=== PATIENT | female | born 1965 | race Caucasian/White ===

== ENCOUNTER → 2020-07-23 12:25 | Outpatient (BNVA) | payer MEDICAID, SELFPAY | PROVIDERS: PCP Registered Nurse; Referring Provider Registered Nurse; Visit Provider Physician Assistant | DX: Z76.89 Persons encountering health services in other specified circumstances (principal) ==

== ENCOUNTER 2020-09-02 15:10 | Inpatient (IN) | payer MEDICAID, SELFPAY ==
--- NOTE | ~2020-09-02 | XR_ITS ---
EXAMINATION: XR CHEST CLINICAL INFORMATION: Shortness of breath COMPARISON: Previous x-ray October 2018 TECHNIQUE: Frontal view of the chest was obtained. FINDINGS: The cardiac silhouette is slightly enlarged.. There is pulmonary venous redistribution and increased perihilar markings. Appearance is questionable for pulmonary edema. Differential would include atypical interstitial pneumonia or airways disease. There is no pleural effusion or pneumothorax. Bony structures are unremarkable. XR/XR chest 1V IMPRESSION: Slightly enlarged cardiac silhouette. Pulmonary venous redistribution and increased perihilar markings. Differential would include pulmonary edema, atypical interstitial pneumonia or airways disease.
--- NOTE | ~2020-09-02 | CT_ITS ---
EXAMINATION: CT HEAD WITHOUT CONTRAST CLINICAL INFORMATION: Multiple falls, possible syncope. COMPARISON: CT brain 11/18/2017. TECHNIQUE: Contiguous axial imaging was performed from the skull base to vertex without intravenous administration of contrast. Additional 2-D coronal and sagittal reformatted images are generated on the CT workstation and uploaded to PACS. Additional imaging is performed through the upper brain due to motion on initial scanning. This CT examination was performed using dose optimization techniques as appropriate, variously including the following: *Automated exposure control *Adjustment of mA and/or kV according to patient size (this includes techniques or standardized protocols for targeted exams where dose is matched to indication/reason for exam; i.e. extremities or head) *Use of iterative reconstruction technique DLP: 853 mGy-cm FINDINGS: There is no intracranial hemorrhage, hematoma, or extra-axial fluid collection. The ventricles are normal in size. There is no hydrocephalus, edema, or mass effect. The hopper-white matter differentiation appears symmetric. There is no visible acute territorial infarct or mass lesion. The calvarium appears intact. There is no pneumocephalus or orbital emphysema. The visualized sinuses and middle ears and mastoid air cells show no significant mucosal thickening. There are no air-fluid levels. CT/CT head/brain wo con IMPRESSION: No acute intracranial abnormality.
--- NOTE | ~2020-09-02 | CT_ITS ---
EXAMINATION: CT ANGIOGRAM OF THE CHEST WITH AND WITHOUT CONTRAST (CT PULMONARY ANGIOGRAM FOR PE) CLINICAL INFORMATION: Reason for Exam Elevated D-dimer. Hypoxia. COMPARISON: Chest radiograph earlier today and CTA chest 09/23/2011 TECHNIQUE: Prior to contrast administration, noncontrast localization images were obtained. Subsequently, multidetector volumetric imaging was performed from the thoracic inlet to below the diaphragms following the administration of 62 mL Omnipaque 350 intravenous contrast. No contrast reaction reported Sagittal, coronal, and MIP oblique sagittal reformatted images were obtained on the CT workstation, uploaded to PACS, and reviewed. This CT examination was performed using dose optimization techniques as appropriate, variously including the following: *Automated exposure control *Adjustment of mA and/or kV according to patient size (this includes techniques or standardized protocols for targeted exams where dose is matched to indication/reason for exam; i.e. extremities or head) *Use of iterative reconstruction technique Total exam dose-length product 261 mGy-cm FINDINGS: QUALITY OF STUDY/CONTRAST BOLUS: Satisfactory. PULMONARY ARTERIES: No central or segmental pulmonary emboli. THORACIC AORTA: No aneurysm or dissection. LUNG: Multifocal groundglass infiltrates are noted throughout the lungs involving all lobes. Findings are worrisome for Covid 19 pulmonary infection. At the time of the 2011 study, groundglass changes were present but were more nonspecific in appearance. PLEURA: No pleural effusion or pneumothorax. MEDIASTINUM: Normal heart size. No pericardial effusion. Some small AP window nodes are present along with some small hilar lymph nodes. No gross hilar or mediastinal lymphadenopathy. No evidence of septal bowing or right heart strain. CHEST WALL/AXILLA: No axillary or internal mammary lymphadenopathy. OSSEOUS STRUCTURES: No acute or suspicious osseous abnormality. UPPER ABDOMEN: There is probable hepatic steatosis. No reflux of contrast into the hepatic veins to suggest elevated right heart pressures. CT/CT angio chest PE protocol IMPRESSION: 1. No evidence of pulmonary emboli. 2. Diffuse pulmonary ground glass infiltrates worrisome for Covid 19 infection. VTE: negative
[2020-09-02 15:25] VITALS: BP 144/85; BP 158/90; PULSE 115; PULSE 118; RESP 22; TEMP 38.8; O2SAT 94; BMI 29.8
--- NOTE | 2020-09-02 16:10 | ECG_ITS ---
Test Reason : DYSPNEA Blood Pressure : / mmHG Vent. Rate : 114 BPM Atrial Rate : 114 BPM P-R Int : 138 ms QRS Dur : 068 ms QT Int : 324 ms P-R-T Axes : 042 035 053 degrees QTc Int : 446 ms Sinus tachycardia Otherwise normal ECG When compared with ECG of 18-SEP-2018 21:37, No significant change was found Referred By: Naya Metz Electronically Signed By:CORTNEY GARAY
[2020-09-02] MEDS: Acetaminophen 325 MG TABLET 650 MG PO (16:52)
[2020-09-02] MEDS: dexAMETHasone sod phosphate 4 MG/ML VIAL 6 MG IVPUSH (16:53)
[2020-09-02] MEDS: 0.9 % Sodium Chloride 1,000 ML 999 ML IVCONT (16:56)
--- NOTE | 2020-09-02 16:57 | ED.SOB ---
HPI - SOB/Dyspnea General Chief Complaint: Dyspnea Stated Complaint: COVID SYMPTOMS Time Seen by Provider: 09/02/20 16:08 Source: patient History of Present Illness HPI Narrative: 55-year-old female with a past medical history of GERD, chronic constipation, HTN, renal stones, seizures, migraines, presenting to the ED complaining of headache, fever, generalized malaise/weakness, cough, shortness of breath, chest pain x8 days. Also reports multiple falls at home with unknown LOC/syncope or head trauma. States was tested for COVID-19 today but will not know for 8 days. Denies abdominal pain, nausea/vomiting, diarrhea, recent travel Related Data Home Medications Medication Instructions Recorded Confirmed atorvastatin 20 mg tablet 20 mg PO DAILY 07/23/20 09/02/20 gabapentin 300 mg capsule 300 mg PO TID 07/23/20 09/02/20 levothyroxine 25 mcg capsule 25 mcg PO DAILY 07/23/20 09/02/20 meloxicam 7.5 mg tablet 7.5 mg PO DAILY 07/23/20 09/02/20 omeprazole 20 mg capsule,delayed 20 mg PO DAILY 07/23/20 09/02/20 release acetaminophen-codeine 1 tab PO Q12H PRN 09/02/20 09/02/20 amitriptyline 1 tab PO DAILY 09/02/20 09/02/20 carbamazepine 2 tab PO Q12H 09/02/20 09/02/20 cholecalciferol (vitamin D3) 1,250 mcg PO QWEEK 09/02/20 09/02/20 clonazepam 1 tab PO BID PRN 09/02/20 09/02/20 clonidine HCl 1 tab PO TID 09/02/20 09/02/20 divalproex 1 tab PO DAILY 09/02/20 09/02/20 docusate sodium 1 cap PO BID PRN 09/02/20 09/02/20 famotidine 1 tab PO BID 09/02/20 09/02/20 fluticasone propionate 1 puff INHALATION BID 09/02/20 09/02/20 levothyroxine [Synthroid] 25 mcg PO DAILY 09/02/20 09/02/20 melatonin 1 - 2 tab PO BEDTIME PRN 09/02/20 09/02/20 quetiapine 1 tab PO BID 09/02/20 09/02/20 quetiapine 1 tab PO TID 09/02/20 09/02/20 quetiapine [Seroquel] 100 mg PO BID 09/02/20 09/02/20 sertraline [Zoloft] 50 mg PO DAILY 09/02/20 09/02/20 topiramate 1 tab PO BID 09/02/20 09/02/20 Allergies Allergy/AdvReac Type Severity Reaction Status Date / Time ibuprofen [From MOTRIN] Allergy Unknown DIARRHEA/VOMIT, Verified 09/02/20 16:52 nausea and vomiting Review of Systems Review of Systems: Constitutional: No Weight loss, + Fever, + Chills, No Night Sweats, +Fatigue, + Malaise ENT/Mouth: + Nasal Congestion, No sore throat, No Rhinorrhea Cardiovascular: + Chest Pain, + SOB, No Dyspnea on Exertion, No Orthopnea, No Edema, No Palpitations Respiratory: + Cough, No Sputum, No Wheezing Gastrointestinal: No Nausea, No Vomiting, No Diarrhea, No Constipation, No Abdominal pain Genitourinary: No Dysuria, No Urinary Frequency, No Hematuria Musculoskeletal: No joint pain, + Myalgias, No Joint Swelling Skin: No Skin Lesions, No rash Neuro: + Weakness, Unknown Loss of Consciousness,+ Headache Yes all other systems are reviewed and are negative Neurologic: Denies Abnormal speech present [facility] Past Medical History Attestation statement: The following information was validated with the patient. Medical History (Updated 09/02/20 @ 21:09 by MARGO Carlos) Acid reflux Chronic constipation HTN (hypertension) Kidney stones Migraine Seizure disorder Surgical History (Updated 08/25/20 @ 13:54 by Brionna Dorman) Hx of cystoscopy Social History Social History (Updated 08/25/20 @ 13:54 by Brionna Dorman) Alcohol intake: never Smoking Status: Never smoker Tobacco Type: Cigarette Use of substances other than those prescribed or required for medical reasons: No Advance Directives: No Advance Directives Information Provided: No Current occupational status: disabled Physical Exam Vital Signs: Vital Signs: Last Vital Signs Temp 98.6 F 09/02/20 19:35 Pulse 101 H 09/02/20 19:35 Resp 20 09/02/20 19:35 BP 115/60 09/02/20 19:35 Pulse Ox 93 09/02/20 19:35 Body Mass Index 29.8 Const: General: cooperative, healthy appearing, comfortable and no acute distress Orientation/consciousness: patient oriented x3 Limitations: no limitations HENMT: Head: Yes normal to inspection and Yes atraumatic Ears: hearing grossly normal bilaterally General nose exam: Normal external nose present Face and sinus: Yes normal facial exam Eyes: General: appearance normal, both eyes and all related structures Pupils: Equal, round and reactive pupils present EOM: EOMs intact bilaterally Neck: Neck: Yes normal visual inspection, Yes full ROM and Yes no meningeal signs Resp: Other: Coarse lung sounds throughout Effort & Inspection: normal respiratory effort Auscultation: clear to auscultation bilaterally and wheezes expiratory wheezes Cardio: Rate: regular rate Heart sounds: S1 normal heart sound present and S2 normal heart sound present GI: Inspection: Yes normal to inspection Palpation (GI): Soft to palpation, nontender, no guarding and not rigid Skin: Rashes: no rashes Wounds: no wounds Neuro: General: patient oriented x3, tone normal, moves all extremities, no meningeal signs, no focal motor deficits and CN's II-XI intact bilaterally Cranial nerves: Yes Equal, round and reactive pupils present Cognition (Neuro): normal cognition Speech: No Abnormal speech present Motor exam (neuro): 5/5 motor strength present throughout and Pronator motor function not present Coordination: [id number] test normal and Romberg test negative Extrem: General: Yes normal to inspection and Yes no pedal edema Course Course Course Narrative: -drop in H&H, will obtain occult stool -troponin elevated at 14.3 > will obtain 3 hour repeat XR chest 1V IMPRESSION: Slightly enlarged cardiac silhouette. Pulmonary venous redistribution and increased perihilar markings. Differential would include pulmonary edema, atypical interstitial pneumonia or airways disease > IV ceftriaxone added -1856-- head CT unremarkable, lactic negative, ferritin/LDH elevated. CPK 1664 consistent rhabdo -D-dimer 397, occult stool negative -COVID-19/influenza/RSV negative > will obtain CTA to rule out PE -2099-- ED care transferred to [facility] pending CTA, UA, reepat trop and admission MDM - SOB/Dyspnea MDM Narrative Medical decision making narrative: 55-year-old female with a past medical history of GERD, chronic constipation, HTN, renal stones, seizures, migraines, presenting to the ED complaining of headache, fever, generalized malaise/weakness, cough, shortness of breath, chest pain x8 days. On exam febrile, tachycardic, tachypneic, satting 88% on room air, coarse lung sounds throughout, no focal neuro deficits. Concern for viral syndrome/COVID-19. R/o PNA vs ICH vs Rhabdo vs metabolic abnls. Lower concern for ACS/PE Low concern for severe sepsis at this time as likely viral etiology Plan: EKG, labs, CXR, Head CT, COVID, IVF, Reassess Medical Records Attestation: I reviewed the patient's medical records. Lab Data Attestation: I reviewed the patient's lab results. Result diagrams: 09/02/20 17:13 09/02/20 17:13 Labs: Lab Results 09/02/20 09/02/20 09/02/20 Range/Units 17:13 17:13 17:13 WBC 6.6 (4.8-10.8) X10*3/uL RBC 3.65 L (4.20-5.50) X10*6/uL Hgb 10.7 L (12.0-16.0) g/dl Hct 34.7 L (37-47) % MCV 95.1 (80-98) fL MCH 29.3 (27.0-33.0) pg MCHC 30.8 L (31.0-35.0) g/dl RDW 14.1 (11.0-16.0) % Plt Count 275 (160-400) X10*3/uL MPV 10.5 (9.4-12.3) fL Immature Gran % (Auto) 0.9 H (0.0-0.4) % Neut % (Auto) 71.3 (45-73) % Lymph % (Auto) 19.6 L (20-40) % [place] % (Auto) 7.8 (2-11) % Eos % (Auto) 0.2 (0-4) % Baso % (Auto) 0.2 (0-2) % Lymph # (Auto) 1.3 (1.2-4.9) X10*3/uL [place] # (Auto) 0.5 (0.1-1.2) X10*3/uL Eos # (Auto) 0.0 (0.0-0.4) X10*3/uL Baso # (Auto) 0.0 (0.0-0.2) X10*3/uL Abs Immat Gran (auto) 0.06 H (0.00-0.03) X10*3/uL Absolute Neuts (auto) 4.7 (2.0-8.3) X10*3/uL Absolute Nucleated RBC 0.000 (0.0-0.012) X10*3/uL Nucleated RBC % (auto) 0.0 (0.0-0.2) /100WBC Smear Tech's Comments VERIFIED PT 14.8 H (10.8-13.0) SEC INR 1.2 H (0.9-1.1) APTT 36.2 (24.1-38.0) SEC D-Dimer 397 NG/ML Sodium 140 (135-145) mmol/L Potassium 3.7 (3.3-5.1) mmol/L Chloride 102 (96-108) mmol/L Carbon Dioxide 28 (22-29) mmol/L Anion Gap 14 (12-20) BUN 12 (9-16) mg/dL Creatinine 0.95 (0.5-1.4) mg/dL Estim Creat Clear Calc 63.8 Estimated GFR > 60 Random Glucose 92 (60-115) mg/dL Lactic Acid (0.5-2.0) mmol/L Calcium 7.4 L (8.4-10.2) mg/dL Magnesium 1.8 (1.6-2.6) mg/dL Ferritin (10-250) ng/mL Total Bilirubin 0.3 (0.0-1.0) mg/dL Direct Bilirubin 0.2 (0.0-0.5) mg/dL AST 59 H (5-31) U/L ALT 17 (0-31) U/L Alkaline Phosphatase 101 (39-117) U/L Lactate Dehydrogenase 474 H (122-220) U/L Total Creatine Kinase 1664 H (26-140) U/L Troponin I High Sens (<3.5-17.0) ng/L B-Natriuretic Peptide (<100) pg/mL Total Protein 6.9 (6.5-8.0) g/dL Albumin 3.5 (3.5-5.0) g/dL Procalcitonin ng/mL Stool Occult Blood (NEG) Coronavirus (PCR) (Negative) Influenza Type A (PCR) (Negative) Influenza Type B (PCR) (Negative) RSV RNA Qual (PCR) (Negative) 09/02/20 09/02/20 09/02/20 Range/Units 17:13 17:13 17:13 WBC (4.8-10.8) X10*3/uL RBC (4.20-5.50) X10*6/uL Hgb (12.0-16.0) g/dl Hct (37-47) % MCV (80-98) fL MCH (27.0-33.0) pg MCHC (31.0-35.0) g/dl RDW (11.0-16.0) % Plt Count (160-400) X10*3/uL MPV (9.4-12.3) fL Immature Gran % (Auto) (0.0-0.4) % Neut % (Auto) (45-73) % Lymph % (Auto) (20-40) % [place] % (Auto) (2-11) % Eos % (Auto) (0-4) % Baso % (Auto) (0-2) % Lymph # (Auto) (1.2-4.9) X10*3/uL [place] # (Auto) (0.1-1.2) X10*3/uL Eos # (Auto) (0.0-0.4) X10*3/uL Baso # (Auto) (0.0-0.2) X10*3/uL Abs Immat Gran (auto) (0.00-0.03) X10*3/uL Absolute Neuts (auto) (2.0-8.3) X10*3/uL Absolute Nucleated RBC (0.0-0.012) X10*3/uL Nucleated RBC % (auto) (0.0-0.2) /100WBC Smear Tech's Comments PT (10.8-13.0) SEC INR (0.9-1.1) APTT (24.1-38.0) SEC D-Dimer NG/ML Sodium (135-145) mmol/L Potassium (3.3-5.1) mmol/L Chloride (96-108) mmol/L Carbon Dioxide (22-29) mmol/L Anion Gap (12-20) BUN (9-16) mg/dL Creatinine (0.5-1.4) mg/dL Estim Creat Clear Calc Estimated GFR Random Glucose (60-115) mg/dL Lactic Acid (0.5-2.0) mmol/L Calcium (8.4-10.2) mg/dL Magnesium (1.6-2.6) mg/dL Ferritin 523 H (10-250) ng/mL Total Bilirubin (0.0-1.0) mg/dL Direct Bilirubin (0.0-0.5) mg/dL AST (5-31) U/L ALT (0-31) U/L Alkaline Phosphatase (39-117) U/L Lactate Dehydrogenase (122-220) U/L Total Creatine Kinase (26-140) U/L Troponin I High Sens 14.3 (<3.5-17.0) ng/L B-Natriuretic Peptide 13 (<100) pg/mL Total Protein (6.5-8.0) g/dL Albumin (3.5-5.0) g/dL Procalcitonin 0.08 ng/mL Stool Occult Blood (NEG) Coronavirus (PCR) (Negative) Influenza Type A (PCR) (Negative) Influenza Type B (PCR) (Negative) RSV RNA Qual (PCR) (Negative) 09/02/20 09/02/20 09/02/20 Range/Units 17:57 17:57 18:51 WBC (4.8-10.8) X10*3/uL RBC (4.20-5.50) X10*6/uL Hgb (12.0-16.0) g/dl Hct (37-47) % MCV (80-98) fL MCH (27.0-33.0) pg MCHC (31.0-35.0) g/dl RDW (11.0-16.0) % Plt Count (160-400) X10*3/uL MPV (9.4-12.3) fL Immature Gran % (Auto) (0.0-0.4) % Neut % (Auto) (45-73) % Lymph % (Auto) (20-40) % [place] % (Auto) (2-11) % Eos % (Auto) (0-4) % Baso % (Auto) (0-2) % Lymph # (Auto) (1.2-4.9) X10*3/uL [place] # (Auto) (0.1-1.2) X10*3/uL Eos # (Auto) (0.0-0.4) X10*3/uL Baso # (Auto) (0.0-0.2) X10*3/uL Abs Immat Gran (auto) (0.00-0.03) X10*3/uL Absolute Neuts (auto) (2.0-8.3) X10*3/uL Absolute Nucleated RBC (0.0-0.012) X10*3/uL Nucleated RBC % (auto) (0.0-0.2) /100WBC Smear Tech's Comments PT (10.8-13.0) SEC INR (0.9-1.1) APTT (24.1-38.0) SEC D-Dimer NG/ML Sodium (135-145) mmol/L Potassium (3.3-5.1) mmol/L Chloride (96-108) mmol/L Carbon Dioxide (22-29) mmol/L Anion Gap (12-20) BUN (9-16) mg/dL Creatinine (0.5-1.4) mg/dL Estim Creat Clear Calc Estimated GFR Random Glucose (60-115) mg/dL Lactic Acid 0.6 (0.5-2.0) mmol/L Calcium (8.4-10.2) mg/dL Magnesium (1.6-2.6) mg/dL Ferritin (10-250) ng/mL Total Bilirubin (0.0-1.0) mg/dL Direct Bilirubin (0.0-0.5) mg/dL AST (5-31) U/L ALT (0-31) U/L Alkaline Phosphatase (39-117) U/L Lactate Dehydrogenase (122-220) U/L Total Creatine Kinase (26-140) U/L Troponin I High Sens (<3.5-17.0) ng/L B-Natriuretic Peptide (<100) pg/mL Total Protein (6.5-8.0) g/dL Albumin (3.5-5.0) g/dL Procalcitonin ng/mL Stool Occult Blood NEG (NEG) Coronavirus (PCR) NEGATIVE (Negative) Influenza Type A (PCR) NEGATIVE (Negative) Influenza Type B (PCR) NEGATIVE (Negative) RSV RNA Qual (PCR) NEGATIVE (Negative) ECG Data Attestation: I personally reviewed and interpreted this ECG as follows: ECG interpretation date: 09/02/20 ECG interpretation time: 17:04 Prior ECG tracings: available for review Interpretation: EKG sinus tachycardia with rate of 114. Artifact present. No STEMI. Similar to priors Discharge Plan Discharge Clinical Impression: Atypical pneumonia, Syncope Patient Disposition: Admitted As Inpatient Prescriptions: No Action clonidine HCl 0.1 mg tablet 1 tab PO TID RF: 0 carbamazepine 100 mg tablet extended release 12 hr 2 tab PO Q12H RF: 0 clonazepam 1 mg tablet 1 tab PO BID PRN (Reason: Anxiety) RF: 0 melatonin 3 mg tablet 1 - 2 tab PO BEDTIME PRN (Reason: Insomnia) RF: 0 acetaminophen-codeine 300-30 mg tablet 1 tab PO Q12H PRN (Reason: Pain) RF: 0 quetiapine 100 mg tablet 1 tab PO BID RF: 0 famotidine 20 mg tablet 1 tab PO BID RF: 0 divalproex 500 mg tablet extended release 24 hr 1 tab PO DAILY RF: 0 docusate sodium 100 mg capsule 1 cap PO BID PRN (Reason: constipation) RF: 0 topiramate 100 mg tablet 1 tab PO BID RF: 0 sertraline [Zoloft] 50 mg tablet 50 mg PO DAILY RF: 0 amitriptyline 100 mg tablet 1 tab PO DAILY RF: 0 quetiapine 50 mg tablet 1 tab PO TID RF: 0 cholecalciferol (vitamin D3) 1,250 mcg (50,000 unit) capsule 1,250 mcg PO QWEEK RF: 0 quetiapine [Seroquel] 100 mg Tablet 100 mg PO BID RF: 0 levothyroxine [Synthroid] 25 mcg Tablet 25 mcg PO DAILY RF: 0 fluticasone propionate 220 mcg/actuation Hfa Aerosol Inhaler 1 puff INHALATION BID RF: 0 levothyroxine 25 mcg capsule 25 mcg PO DAILY RF: 0 meloxicam 7.5 mg tablet 7.5 mg PO DAILY RF: 0 gabapentin 300 mg capsule 300 mg PO TID RF: 0 atorvastatin 20 mg tablet 20 mg PO DAILY RF: 0 omeprazole 20 mg capsule,delayed release(DR/EC) 20 mg PO DAILY RF: 0
[2020-09-02 17:00] VITALS: BP 140/80; PULSE 117; RESP 20; TEMP 37.9; O2SAT 94
[2020-09-02 17:24] LABS: Basophils Percent Auto 0.2 % (0-2); Eosinophils Percent Auto 0.2 % (0-4); Hematocrit 34.7 % (37-47); Hemoglobin 10.7 g/dl (12.0-16.0); Imm Gran Abs Auto 0.06 X10*3/uL (0.00-0.03); Imm Gran Pct Auto 0.9 % (0.0-0.4); Lymphocytes Absolute Auto 1.3 X10*3/uL (1.2-4.9); Lymphocytes Percent Auto 19.6 % (20-40); MANUAL DIFF FLAG SCAN; Mean Corpuscular HGB Conc 30.8 g/dl (31.0-35.0); Mean Corpuscular Hemoglobin 29.3 pg (27.0-33.0); Mean Corpuscular Volume 95.1 fL (80-98); Mean Platelet Volume 10.5 fL (9.4-12.3); Monocytes Absolute Auto 0.5 X10*3/uL (0.1-1.2); Monocytes Percent Auto 7.8 % (2-11); Neutrophils Absolute Auto 4.7 X10*3/uL (2.0-8.3); Neutrophils Percent Auto 71.3 % (45-73); Platelet Count 275 X10*3/uL (160-400); Red Blood Count 3.65 X10*6/uL (4.20-5.50); Red Cell Distribution Width 14.1 % (11.0-16.0); SCAN SMEAR FLAG 1; White Blood Count 6.6 X10*3/uL (4.8-10.8)
[2020-09-02 17:29] LABS: INTERNATIONAL NORM RATIO 1.2 (0.9-1.1); Prothrombin Time 14.8 SEC (10.8-13.0)
[2020-09-02 17:32] LABS: Partial Thromboplastin Time 36.2 SEC (24.1-38.0)
[2020-09-02 17:49] LABS: SLIDE REVIEW VERIFIED
[2020-09-02 17:56] LABS: B Type Natriuretic Peptide 13 pg/mL (<100); Troponin-I High Sensitivity 14.3 ng/L (<3.5-17.0)
[2020-09-02 18:15] LABS: Alanine Aminotransferase 17 U/L (0-31); Albumin Level 3.5 g/dL (3.5-5.0); Alkaline Phosphatase 101 U/L (39-117); Anion Gap 14 (12-20); Aspartate Amino Transferase 59 U/L (5-31); Bilirubin Direct 0.2 mg/dL (0.0-0.5); Bilirubin Total 0.3 mg/dL (0.0-1.0); Blood Urea Nitrogen 12 mg/dL (9-16); Calcium 7.4 mg/dL (8.4-10.2); Carbon Dioxide 28 mmol/L (22-29); Chloride 102 mmol/L (96-108); Creatinine Clr Calc Pharmacy 63.8; Estimated Glomerular Filt Rate > 60; Glucose Random 92 mg/dL (60-115); Lactate Dehydrogenase 474 U/L (122-220); Magnesium 1.8 mg/dL (1.6-2.6); Potassium 3.7 mmol/L (3.3-5.1); Procalcitonin 0.08 ng/mL; Sodium 140 mmol/L (135-145); Total Protein 6.9 g/dL (6.5-8.0)
[2020-09-02 18:18] LABS: Ferritin 523 ng/mL (10-250)
[2020-09-02] MEDS: cefTRIAXone sodium 1 GM in 0.9 % Sodium Chloride 50 ML IV (18:25)
[2020-09-02 18:29] LABS: Lactic Acid 0.6 mmol/L (0.5-2.0)
[2020-09-02] MEDS: Azithromycin 500 MG in 0.9 % Sodium Chloride 250 ML 125 MG IV (18:47)
[2020-09-02 19:07] LABS: OBS Int Ctl Valid YES; OBS1 NEG (NEG)
[2020-09-02 19:18] LABS: D Dimer 397 NG/ML
[2020-09-02 19:35] VITALS: BP 115/60; PULSE 101; RESP 20; TEMP 37; O2SAT 93
[2020-09-02 19:54] LABS: Influenza A PCR NEGATIVE (Negative); Influenza B PCR NEGATIVE (Negative); Resp Syncy Virus RNA Qual PCR NEGATIVE (Negative); SARS COV2 PCR INHOUSE NEGATIVE (Negative)
[2020-09-02] MEDS: iohexoL 350 MG/ML 100 ML INFUS..BTL IV (20:54)
[2020-09-02 21:02] VITALS: BP 112/64; PULSE 97; RESP 18; TEMP 36.9; O2SAT 93
[2020-09-02 21:40] LABS: Troponin-I High Sensitivity 10.7 ng/L (<3.5-17.0)
--- NOTE | 2020-09-02 23:20 | PM.IMHP ---
History of Present Illness Date of Service: 09/02/20 Chief Complaint: SOB This is a 55-year-old female with past medical history of hypertension, migraine, seizure disorder, acid reflux who presents to the hospital with complaints of shortness of breath, cough, diarrhea, vomiting and low appetite for the past 8 days. Patient reports that she has had contact with COVID positive patient her building as well as her having COVID like symptoms before her. She has also been feeling feverish, with chills. She has no chest pain, no headache, change in vision, no urinary symptoms and no lower extremity edema. To have a temp of 101.9?, pulse rate of 118, respiratory rate of 22, blood pressure of 144/85, satting 88% on room air. Currently on 2 L satting 94% Labs are significant for WBC count 6.6, hemoglobin of 10.7 which is lower than her baseline of 12, ferritin of 523, AST of 59, LDH of 474, CPK of 1664, negative COVID-19, Chest CT angiogram showed no PE but significant bilateral pneumonia suggestive of COVID-19 infection Past medical history: Chronic constipation, hypertension, migraine, seizure disorder, kidney stones, acid reflux Past surgical history: Cystoscopy Family history: Denies Social history: Comes from home, denies any tobacco alcohol or illicit drugs Review of Systems Review of Systems: Yes all other systems are reviewed and are negative [facility] Medical History Acid reflux Chronic constipation HTN (hypertension) Kidney stones Migraine Seizure disorder Surgical History (Updated 08/25/20 @ 13:54 by Brionna Dorman) Hx of cystoscopy Social History (Updated 08/25/20 @ 13:54 by Brionna Dorman) Alcohol intake: never Smoking Status: Never smoker Tobacco Type: Cigarette Use of substances other than those prescribed or required for medical reasons: No Advance Directives: No Advance Directives Information Provided: No Current occupational status: disabled Meds Allergies Allergy/AdvReac Type Severity Reaction Status Date / Time ibuprofen [From MOTRIN] Allergy Unknown DIARRHEA/VOMIT, Verified 09/02/20 16:52 nausea and vomiting Active Medications: Current Medications Generic Name Dose Route Start Last Admin Trade Name Freq PRN Reason Stop Dose Admin Acetaminophen 650 mg 09/02/20 22:55 Acetaminophen 325 Mg Tablet PO Q6H PRN Fever Acetaminophen/Codeine Phosphate 1 tab 09/02/20 22:55 Acetaminophen With Codeine # 3 Tablet PO Q12H PRN Pain Amitriptyline HCl 100 mg 09/03/20 09:00 Amitriptyline Hcl 50 Mg Tablet PO DAILY [facility] Atorvastatin Calcium 20 mg 09/03/20 09:00 Atorvastatin Calcium 20 Mg Tablet PO DAILY [facility] Carbamazepine 200 mg 09/02/20 23:00 Carbamazepine Er 100 Mg Tab.Er.12h PO Q12H [facility] Clonazepam 1 mg 09/02/20 22:55 Clonazepam 1 Mg Tablet PO BID PRN Anxiety Clonidine HCl 0.1 mg 09/03/20 09:00 Clonidine Hcl 0.1 Mg Tablet PO TID [facility] Protocol Dexamethasone Sodium Phosphate 6 mg 09/03/20 09:00 Dexamethasone Sod Phosphate 4 Mg/Ml Vial IVPUSH DAILY [facility] Divalproex Sodium 500 mg 09/03/20 09:00 Divalproex Sodium Er 500 Mg Tab.Er.24h PO DAILY [facility] Docusate Sodium 100 mg 09/02/20 22:55 Docusate Sodium 100 Mg Capsule PO BID PRN constipation Famotidine 20 mg 09/03/20 09:00 Famotidine 20 Mg Tablet PO BID [facility] Gabapentin 300 mg 09/03/20 09:00 Gabapentin 300 Mg Capsule PO TID [facility] Heparin Sodium (Porcine) 5,000 unit 09/02/20 23:00 Heparin Sodium,Porcine 5,000 Unit/Ml Vial SUBCUT Q12H [facility] Levothyroxine Sodium 25 mcg 09/03/20 09:00 Levothyroxine Sodium 25 Mcg Tablet PO DAILY [facility] Levothyroxine Sodium 25 mcg 09/03/20 09:00 Levothyroxine Sodium 25 Mcg Tablet PO DAILY [facility] Melatonin 3 - 6 mg 09/02/20 22:55 Melatonin 3 Mg Tablet PO BEDTIME PRN Insomnia Non-Formulary Medication 1 puff 09/03/20 09:00 Fluticasone Propionate INHALE BID [facility] Non-Formulary Medication 7.5 mg 09/03/20 09:00 Meloxicam PO DAILY [facility] Omeprazole 20 mg 09/03/20 09:00 Omeprazole 20 Mg Capsule.Dr PO DAILY [facility] Ondansetron HCl 4 mg 09/02/20 22:55 Ondansetron Hcl 4 Mg/2 Ml Vial IVPUSH Q8H PRN Nausea and Vomiting Pharmacy Consult 1 each 09/02/20 16:28 Consult Rx Perform Med Rec MISCELLANE ONCE PRN Consult order Quetiapine Fumarate 50 mg 09/03/20 09:00 Quetiapine Fumarate 50 Mg Tablet PO TID [facility] Quetiapine Fumarate 100 mg 09/03/20 09:00 Quetiapine Fumarate 100 Mg Tablet PO BID [facility] Quetiapine Fumarate 100 mg 09/03/20 09:00 Quetiapine Fumarate 100 Mg Tablet PO BID [facility] Sertraline HCl 50 mg 09/03/20 09:00 Sertraline Hcl 50 Mg Tablet PO DAILY [facility] Sodium Chloride 3 ml 09/03/20 00:00 0.9 % Sodium Chloride Flush 3 Ml Syringe IVFLUSH QSHIFT [facility] Topiramate 100 mg 09/03/20 09:00 Topiramate 100 Mg Tablet PO BID [facility] Home Medications Medication Instructions Recorded Confirmed Last Taken Type atorvastatin 20 mg tablet 20 mg PO DAILY 07/23/20 09/02/20 Unknown History gabapentin 300 mg capsule 300 mg PO TID 07/23/20 09/02/20 Unknown History levothyroxine 25 mcg capsule 25 mcg PO DAILY 07/23/20 09/02/20 Unknown History meloxicam 7.5 mg tablet 7.5 mg PO DAILY 07/23/20 09/02/20 Unknown History omeprazole 20 mg capsule,delayed 20 mg PO DAILY 07/23/20 09/02/20 Unknown History release acetaminophen-codeine 1 tab PO Q12H PRN 09/02/20 09/02/20 Unknown History amitriptyline 1 tab PO DAILY 09/02/20 09/02/20 Unknown History carbamazepine 2 tab PO Q12H 09/02/20 09/02/20 Unknown History cholecalciferol (vitamin D3) 1,250 mcg PO QWEEK 09/02/20 09/02/20 Unknown History clonazepam 1 tab PO BID PRN 09/02/20 09/02/20 Unknown History clonidine HCl 1 tab PO TID 09/02/20 09/02/20 Unknown History divalproex 1 tab PO DAILY 09/02/20 09/02/20 Unknown History docusate sodium 1 cap PO BID PRN 09/02/20 09/02/20 Unknown History famotidine 1 tab PO BID 09/02/20 09/02/20 Unknown History fluticasone propionate 1 puff INHALATION BID 09/02/20 09/02/20 Unknown History levothyroxine [Synthroid] 25 mcg PO DAILY 09/02/20 09/02/20 Unknown History melatonin 1 - 2 tab PO BEDTIME PRN 09/02/20 09/02/20 Unknown History quetiapine 1 tab PO BID 09/02/20 09/02/20 Unknown History quetiapine 1 tab PO TID 09/02/20 09/02/20 Unknown History quetiapine [Seroquel] 100 mg PO BID 09/02/20 09/02/20 Unknown History sertraline [Zoloft] 50 mg PO DAILY 09/02/20 09/02/20 Unknown History topiramate 1 tab PO BID 09/02/20 09/02/20 Unknown History Physical Exam Vital Signs and Narrative: Vital Signs: Last Vital Signs Temp 98.5 F 09/02/20 21:02 Pulse 97 09/02/20 21:02 Resp 18 09/02/20 21:02 BP 112/64 09/02/20 21:02 Pulse Ox 93 09/02/20 21:02 Body Mass Index 29.8 Const: General: cooperative and no acute distress Orientation/consciousness: patient oriented x3 Eyes: General: appearance normal, both eyes and all related structures Resp: Effort & Inspection: normal respiratory effort and able to speak in complete sentences Cardio: Rate: regular rate Rhythm: regular rhythm GI: Palpation (GI): Soft to palpation Auscultation: normal bowel sounds Skin: General skin exam: no rashes or lesions noted Neuro: General: patient oriented x3 Cognition (Neuro): normal cognition Extrem: General: Yes normal to inspection and Yes no pedal edema Results Labs CBC and Chem 7: 09/02/20 17:13 09/02/20 17:13 Labs: Laboratory Results - last 24 hr 09/02/20 09/02/20 09/02/20 17:13 17:13 17:13 MCV 95.1 MCH 29.3 MCHC 30.8 L RDW 14.1 Plt Count 275 MPV 10.5 Immature Gran % (Auto) 0.9 H Neut % (Auto) 71.3 Lymph % (Auto) 19.6 L [place] % (Auto) 7.8 Eos % (Auto) 0.2 Baso % (Auto) 0.2 Lymph # (Auto) 1.3 [place] # (Auto) 0.5 Eos # (Auto) 0.0 Baso # (Auto) 0.0 Abs Immat Gran (auto) 0.06 H Absolute Neuts (auto) 4.7 Absolute Nucleated RBC 0.000 Nucleated RBC % (auto) 0.0 Smear Tech's Comments VERIFIED PT 14.8 H INR 1.2 H APTT 36.2 D-Dimer 397 Anion Gap 14 Estim Creat Clear Calc 63.8 Estimated GFR > 60 Random Glucose 92 Lactic Acid Calcium 7.4 L Magnesium 1.8 Ferritin Total Bilirubin 0.3 Direct Bilirubin 0.2 AST 59 H ALT 17 Alkaline Phosphatase 101 Lactate Dehydrogenase 474 H Total Creatine Kinase 1664 H Troponin I High Sens B-Natriuretic Peptide Total Protein 6.9 Albumin 3.5 Procalcitonin Stool Occult Blood Coronavirus (PCR) Influenza Type A (PCR) Influenza Type B (PCR) RSV RNA Qual (PCR) 09/02/20 09/02/20 09/02/20 17:13 17:13 17:13 MCV MCH MCHC RDW Plt Count MPV Immature Gran % (Auto) Neut % (Auto) Lymph % (Auto) [place] % (Auto) Eos % (Auto) Baso % (Auto) Lymph # (Auto) [place] # (Auto) Eos # (Auto) Baso # (Auto) Abs Immat Gran (auto) Absolute Neuts (auto) Absolute Nucleated RBC Nucleated RBC % (auto) Smear Tech's Comments PT INR APTT D-Dimer Anion Gap Estim Creat Clear Calc Estimated GFR Random Glucose Lactic Acid Calcium Magnesium Ferritin 523 H Total Bilirubin Direct Bilirubin AST ALT Alkaline Phosphatase Lactate Dehydrogenase Total Creatine Kinase Troponin I High Sens 14.3 B-Natriuretic Peptide 13 Total Protein Albumin Procalcitonin 0.08 Stool Occult Blood Coronavirus (PCR) Influenza Type A (PCR) Influenza Type B (PCR) RSV RNA Qual (PCR) 09/02/20 09/02/20 09/02/20 17:57 17:57 18:51 MCV MCH MCHC RDW Plt Count MPV Immature Gran % (Auto) Neut % (Auto) Lymph % (Auto) [place] % (Auto) Eos % (Auto) Baso % (Auto) Lymph # (Auto) [place] # (Auto) Eos # (Auto) Baso # (Auto) Abs Immat Gran (auto) Absolute Neuts (auto) Absolute Nucleated RBC Nucleated RBC % (auto) Smear Tech's Comments PT INR APTT D-Dimer Anion Gap Estim Creat Clear Calc Estimated GFR Random Glucose Lactic Acid 0.6 Calcium Magnesium Ferritin Total Bilirubin Direct Bilirubin AST ALT Alkaline Phosphatase Lactate Dehydrogenase Total Creatine Kinase Troponin I High Sens B-Natriuretic Peptide Total Protein Albumin Procalcitonin Stool Occult Blood NEG Coronavirus (PCR) NEGATIVE Influenza Type A (PCR) NEGATIVE Influenza Type B (PCR) NEGATIVE RSV RNA Qual (PCR) NEGATIVE 09/02/20 21:07 MCV MCH MCHC RDW Plt Count MPV Immature Gran % (Auto) Neut % (Auto) Lymph % (Auto) [place] % (Auto) Eos % (Auto) Baso % (Auto) Lymph # (Auto) [place] # (Auto) Eos # (Auto) Baso # (Auto) Abs Immat Gran (auto) Absolute Neuts (auto) Absolute Nucleated RBC Nucleated RBC % (auto) Smear Tech's Comments PT INR APTT D-Dimer Anion Gap Estim Creat Clear Calc Estimated GFR Random Glucose Lactic Acid Calcium Magnesium Ferritin Total Bilirubin Direct Bilirubin AST ALT Alkaline Phosphatase Lactate Dehydrogenase Total Creatine Kinase Troponin I High Sens 10.7 B-Natriuretic Peptide Total Protein Albumin Procalcitonin Stool Occult Blood Coronavirus (PCR) Influenza Type A (PCR) Influenza Type B (PCR) RSV RNA Qual (PCR) Imaging Radiologist's Impressions: Impressions Chest X-Ray 09/02/20 16:10 IMPRESSION: Slightly enlarged cardiac silhouette. Pulmonary venous redistribution and increased perihilar markings. Differential would include pulmonary edema, atypical interstitial pneumonia or airways disease. Head CT 09/02/20 16:28 IMPRESSION: No acute intracranial abnormality. Chest CTA 09/02/20 20:06 IMPRESSION: 1. No evidence of pulmonary emboli. 2. Diffuse pulmonary ground glass infiltrates worrisome for Covid 19 infection. VTE: negative Assessment and Plan (1) Atypical pneumonia: Status: Acute (2) Sepsis: Status: Acute (3) Acute respiratory failure with hypoxia: Status: Acute (4) Pneumonia due to COVID-19 virus: Status: Acute This is a 55-year-old female with past medical history hypertension, migraine, seizure disorder who presents to the hospital with complaints of shortness of breath, cough, diarrhea, and vomiting with recent COVID-19 contacts. # sepsis - most likely secondary to viral pneumonia - has fever, tachycardia, tachypnea, no leukocytosis - COVID-19 PCR negative but most likely falsely negative as her chest CT typical of COVID-19 pneumonia Plan: - received antibiotics in the ED will continue it -check strep and Legionella antigens - follow cultures # acute hypoxic respiratory failure - secondary to pneumonia - requiring 2 L of oxygen - follow respiratory status - dexamethasone for COVID-19 # atypical pneumonia - has bilateral infiltrates suggestive of COVID-19 although COVID-19 PCR negative - at this time will start on IV antibiotics, dexamethasone given her hypoxia - follow cultures # hypothyroidism - continue levothyroxine # seizures - continue divalproex and carbamazepine # migraines - continue amitriptyline and Topamax DVT prophylaxis: Heparin subQ
[2020-09-03] VITALS (9 sets, daily range): BP systolic 120–155; BP diastolic 76–90; PULSE 77–102; RESP 15–23; TEMP 35.7–36.8; O2SAT 92–96
[2020-09-03] MEDS: 0.9 % Sodium Chloride Flush 3 ML SYRINGE IVFLUSH ×4 (02:31→20:11)
[2020-09-03] MEDS: Heparin Sodium,Porcine 5,000 UNIT/ML VIAL 5000 UNIT SUBCUT ×2 (02:34→13:37)
[2020-09-03] MEDS: carBAMazepine ER 100 MG TAB.ER.12H 200 MG PO ×2 (03:02→22:10)
--- NOTE | 2020-09-03 04:45 | PC.NURSE ---
ADMIT TO 261-1 IMC OVERFLOW...AWAKE..ALERT..ORIENTED X3...O2 2-3 L/M...RESPIRATIONS EASY AT REST...MILD SINGH...OCCASSIONAL HARSH NON-PRODUCTIVE COUGH..CO UPPER CHEST ACHY PAIN WITH COUGH...MEDICATED WITH PRN TYLENOL/CODEINE WITH EFFECT..RESTFUL...OOB TO BEDSIDE COMMODE TO VOID
[2020-09-03 05:14] LABS: Glucose Urine UA NEG (NEG); Leukocyte Esterase Urine NEG (NEG); Nitrite Urine POS (NEG); PH 6.5 (5.0-8.0); UACC Culture Trigger YES; Urine Blood TRACE (NEG); Urine Ketones 15 MG/DL (NEG); Urine Protein NEG (NEG-TRACE)
[2020-09-03 05:23] LABS: Appearance Urine HAZY; Color Urine YELLOW
[2020-09-03 05:28] LABS: Bacteria Urine 2+ /LPF; Mucus Urine 2+ /LPF; Squamous Epithelial Cell Urine 2+ /LPF
[2020-09-03 05:50] LABS: Basophils Percent Auto 0.3 % (0-2); Eosinophils Percent Auto 0.2 % (0-4); Hematocrit 34.5 % (37-47); Hemoglobin 10.6 g/dl (12.0-16.0); Imm Gran Abs Auto 0.07 X10*3/uL (0.00-0.03); Imm Gran Pct Auto 1.1 % (0.0-0.4); Lymphocytes Absolute Auto 1.2 X10*3/uL (1.2-4.9); Lymphocytes Percent Auto 19.4 % (20-40); MANUAL DIFF FLAG SCAN; Mean Corpuscular HGB Conc 30.7 g/dl (31.0-35.0); Mean Corpuscular Volume 94.3 fL (80-98); Mean Platelet Volume 11.2 fL (9.4-12.3); Monocytes Absolute Auto 0.6 X10*3/uL (0.1-1.2); Monocytes Percent Auto 10.2 % (2-11); Neutrophils Absolute Auto 4.3 X10*3/uL (2.0-8.3); Neutrophils Percent Auto 68.8 % (45-73); Platelet Count 248 X10*3/uL (160-400); Red Blood Count 3.66 X10*6/uL (4.20-5.50); Red Cell Distribution Width 13.8 % (11.0-16.0); SCAN SMEAR FLAG 1; White Blood Count 6.2 X10*3/uL (4.8-10.8)
[2020-09-03 06:12] LABS: SLIDE REVIEW VERIFIED
[2020-09-03 06:17] LABS: Anion Gap 14 (12-20); Blood Urea Nitrogen 10 mg/dL (9-16); Calcium 7.3 mg/dL (8.4-10.2); Carbon Dioxide 26 mmol/L (22-29); Chloride 105 mmol/L (96-108); Creatinine Clr Calc Pharmacy 80.8; Estimated Glomerular Filt Rate > 60; Glucose Random 79 mg/dL (60-115); Sodium 141 mmol/L (135-145)
[2020-09-03] MEDS: cefTRIAXone sodium 1 GM in 0.9 % Sodium Chloride 50 ML IV (06:38)
[2020-09-03] MEDS: Azithromycin 500 MG TABLET PO (06:39)
[2020-09-03] MEDS: cloNIDine HCL 0.1 MG TABLET PO ×3 (08:30→20:11)
[2020-09-03] MEDS: Amitriptyline HCl 50 MG TABLET 100 MG PO (08:30)
[2020-09-03] MEDS: Topiramate 100 MG TABLET PO ×2 (08:30→20:11)
[2020-09-03] MEDS: NaPROXEN 250 MG TABLET PO (08:30)
[2020-09-03] MEDS: Famotidine 20 MG TABLET PO ×2 (08:32→20:11)
[2020-09-03] MEDS: Levothyroxine Sodium 25 MCG TABLET PO (08:32)
[2020-09-03] MEDS: Omeprazole 20 MG CAPSULE.DR PO (08:32)
[2020-09-03] MEDS: Divalproex Sodium ER 500 MG TAB.ER.24H PO (08:32)
[2020-09-03] MEDS: Atorvastatin Calcium 20 MG TABLET PO (08:35)
[2020-09-03] MEDS: Gabapentin 300 MG CAPSULE PO ×3 (08:35→20:11)
[2020-09-03] MEDS: Sertraline HCL 50 MG TABLET PO (08:36)
[2020-09-03] MEDS: dexAMETHasone sod phosphate 4 MG/ML VIAL 6 MG IVPUSH (08:37)
[2020-09-03] MEDS: QUEtiapine Fumarate 100 MG TABLET PO ×2 (08:38→20:11)
[2020-09-03 12:39] LABS: MANUAL DIFF FLAG NO
[2020-09-03 12:41] LABS: Base Excess VBG 0.8 mmol/L; HCO3 VBG 25 mmol/L; PCO2 VBG 41 mmHg; PO2 VBG 76 mmHg; pH VBG 7.39 (7.32-7.43)
[2020-09-03 12:47] LABS: Basophils Percent Auto 0.1 % (0-2); Eosinophils Percent Auto 0.1 % (0-4); Hemoglobin 10.2 g/dl (12.0-16.0); Imm Gran Abs Auto 0.06 X10*3/uL (0.00-0.03); Imm Gran Pct Auto 0.8 % (0.0-0.4); Lymphocytes Absolute Auto 0.7 X10*3/uL (1.2-4.9); Lymphocytes Percent Auto 9.6 % (20-40); Mean Corpuscular HGB Conc 30.9 g/dl (31.0-35.0); Mean Corpuscular Hemoglobin 29.3 pg (27.0-33.0); Mean Corpuscular Volume 94.8 fL (80-98); Mean Platelet Volume 10.7 fL (9.4-12.3); Monocytes Absolute Auto 0.6 X10*3/uL (0.1-1.2); Monocytes Percent Auto 7.8 % (2-11); Neutrophils Absolute Auto 6.1 X10*3/uL (2.0-8.3); Neutrophils Percent Auto 81.6 % (45-73); Platelet Count 298 X10*3/uL (160-400); Red Blood Count 3.48 X10*6/uL (4.20-5.50); White Blood Count 7.5 X10*3/uL (4.8-10.8)
--- NOTE | 2020-09-03 13:01 | MHC.CM.PN ---
Attempted to meet with patient in regards to discharge planning. Nursing care currently being provided. Spoke with patient's daughter/HCP, Ana Upton via telephone at [phone]. Patient lives with her sig other, Anselmo; is supposed to ambulate with a cane, but doesn't, and has [employer] hours through [facility]. 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 PCP verified. HCP verified to be on file. Anticipate physical therapy eval for home safety will be needed when medically stable. Continue to monitor for d/c needs.
[2020-09-03 13:02] LABS: D Dimer 421 NG/ML
[2020-09-03 13:23] LABS: Lactate Dehydrogenase 449 U/L (122-220); Phosphorus 1.9 mg/dL (2.7-4.5)
[2020-09-03 13:46] LABS: Procalcitonin 0.07 ng/mL
[2020-09-03 14:21] LABS: Adenovirus PCR Not Detected (Not Detect.); Bordetella parapertussis PCR Not Detected (Not Detect.); Bordetella pertussis PCR Not Detected (Not Detect.); Chlamydia pneumoniae PCR Not Detected (Not Detect.); Coronavirus 229E PCR Not Detected (Not Detect.); Coronavirus HKU1 PCR Not Detected (Not Detect.); Coronavirus NL63 PCR Not Detected (Not Detect.); Coronavirus OC43 PCR Not Detected (Not Detect.); Human metapneumovirus PCR Not Detected (Not Detect.); Influenza A PCR Not Detected (Not Detect.); Influenza B PCR Not Detected (Not Detect.); Mycoplasma pneumoniae PCR Not Detected (Not Detect.); Parainfluenza 1 PCR Not Detected (Not Detect.); Parainfluenza 2 PCR Not Detected (Not Detect.); Parainfluenza 3 PCR Not Detected (Not Detect.); Parainfluenza 4 PCR Not Detected (Not Detect.); RSV PCR Not Detected (Not Detect.); Rhino/Enterovirus PCR Not Detected (Not Detect.); SARS-CoV-2 PCR Not Detected (Not Detect.)
[2020-09-03 14:23] LABS: COVID-19 Test Negative (Negative)
--- NOTE | 2020-09-03 15:07 | P.PNIM_ITS ---
Subjective Subjective Date of Service: 09/03/20 Interval History: seen and examined in the ICU this afternoon. pt reports feeling tired, but better than yesterday was very drowsy this morning after AM psych meds but now wide awake and alert ROS General - no fevers or chills Cardiovascular - no chest pain Respiratory - no shortness of breath or cough Abdominal- no abdominal pain, nausea, vomiting, diarrhea Physical Exam Vital Signs: Vital Signs: Last Vital Signs Temp 98.2 F 09/03/20 14:01 Pulse 97 09/03/20 14:12 Resp 16 09/03/20 12:00 BP 120/76 09/03/20 14:12 Pulse Ox 92 09/03/20 12:00 Body Mass Index 29.8 Const: General: cooperative and no acute distress Orientation/consciousness: patient oriented x3 Eyes: General: appearance normal, both eyes and all related structures Pupils: Equal, round and reactive pupils present Resp: Effort & Inspection: normal respiratory effort and able to speak in com plete sentences Auscultation: clear to auscultation bilaterally Cardio: Rate: regular rate Rhythm: regular rhythm GI: Palpation (GI): Soft to palpation Auscultation: normal bowel sounds Skin: General skin exam: no rashes or lesions noted Neuro: General: patient oriented x3 Cranial nerves: Yes Equal, round and reactive pupils present Cognition (Neuro): normal cognition Extrem: General: Yes normal to inspection and Yes no pedal edema Objective Data Current Medications Generic Name Dose Route Start Last Admin Trade Name Freq PRN Reason Stop Dose Admin Acetaminophen 650 mg 09/02/20 22:55 Acetaminophen 325 Mg Tablet PO Q6H PRN Fever Acetaminophen/Codeine Phosphate 1 tab 09/02/20 22:55 09/03/20 04:29 Acetaminophen With Codeine # 3 Tablet PO 1 tab Q12H PRN Administration Pain Amitriptyline HCl 100 mg 09/03/20 09:00 09/03/20 08:30 Amitriptyline Hcl 50 Mg Tablet PO 100 mg DAILY DONNA Administration Atorvastatin Calcium 20 mg 09/03/20 09:00 09/03/20 08:35 Atorvastatin Calcium 20 Mg Tablet PO 20 mg DAILY DONNA Administration Azithromycin 500 mg 09/03/20 06:00 09/03/20 06:39 Azithromycin 500 Mg Tablet PO 500 mg Q24H DONNA Administration Carbamazepine 200 mg 09/02/20 23:00 09/03/20 03:02 Carbamazepine Er 100 Mg Tab.Er.12h PO 200 mg Q12H DONNA Administration Clonazepam 1 mg 09/02/20 22:55 Clonazepam 1 Mg Tablet PO BID PRN Anxiety Clonidine HCl 0.1 mg 09/03/20 09:00 09/03/20 14:12 Clonidine Hcl 0.1 Mg Tablet PO 0.1 mg TID DONNA Administration Protocol Dexamethasone Sodium Phosphate 6 mg 09/03/20 09:00 09/03/20 08:37 Dexamethasone Sod Phosphate 4 Mg/Ml Vial IVPUSH 6 mg DAILY DONNA Administration Divalproex Sodium 500 mg 09/03/20 09:00 09/03/20 08:32 Divalproex Sodium Er 500 Mg Tab.Er.24h PO 500 mg DAILY DONNA Administration Famotidine 20 mg 09/03/20 09:00 09/03/20 08:32 Famotidine 20 Mg Tablet PO 20 mg BID DONNA Administration Fluticasone Propionate 1 puff 09/03/20 08:00 09/03/20 07:39 Fluticasone Propionate 250 Mcg Blst.W.Dev INHALE Not Given [facility] Gabapentin 300 mg 09/03/20 09:00 09/03/20 14:12 Gabapentin 300 Mg Capsule PO 300 mg TID DONNA Administration Heparin Sodium (Porcine) 5,000 unit 09/02/20 23:00 09/03/20 13:37 Heparin Sodium,Porcine 5,000 Unit/Ml Vial SUBCUT 5,000 unit Q12H DONNA Administration Ceftriaxone Sodium 1 gm/ 50 mls @ 100 mls/hr 09/03/20 06:00 09/03/20 07:33 Sodium Chloride IV Infused Q24H DONNA Infusion Levothyroxine Sodium 25 mcg 09/03/20 09:00 09/03/20 08:32 Levothyroxine Sodium 25 Mcg Tablet PO 25 mcg DAILY DONNA Administration Melatonin 3 - 6 mg 09/02/20 22:55 Melatonin 3 Mg Tablet PO BEDTIME PRN Insomnia Naproxen 250 mg 09/03/20 09:00 09/03/20 08:30 Naproxen 250 Mg Tablet PO 250 mg BID DNONA Administration Omeprazole 20 mg 09/03/20 09:00 09/03/20 08:32 Omeprazole 20 Mg Capsule.Dr PO 20 mg DAILY DONNA Administration Ondansetron HCl 4 mg 09/02/20 22:55 Ondansetron Hcl 4 Mg/2 Ml Vial IVPUSH Q8H PRN Nausea and Vomiting Pharmacy Consult 1 each 09/02/20 16:28 Consult Rx Perform Med Rec MISCELLANE ONCE PRN Consult order Quetiapine Fumarate 100 mg 09/03/20 09:00 09/03/20 08:38 Quetiapine Fumarate 100 Mg Tablet PO 100 mg BID DONNA Administration Sertraline HCl 50 mg 09/03/20 09:00 09/03/20 08:36 Sertraline Hcl 50 Mg Tablet PO 50 mg DAILY DONNA Administration Sodium Chloride 3 ml 09/03/20 00:00 09/03/20 08:29 0.9 % Sodium Chloride Flush 3 Ml Syringe IVFLUSH 3 ml QSHIFT DONNA Administration Topiramate 100 mg 09/03/20 09:00 09/03/20 08:30 Topiramate 100 Mg Tablet PO 100 mg BID DONNA Administration Labs CBC & Chem 7: 09/03/20 12:27 09/03/20 05:30 Assessment and Plan (1) Atypical pneumonia: Status: Acute (2) Sepsis: Status: Acute (3) Acute respiratory failure with hypoxia: Status: Acute (4) Pneumonia due to COVID-19 virus: Status: Acute Assessment and Plan: This is a 55-year-old female with past medical history hypertension, migraine, seizure disorder who presents to the hospital with complaints of shortness of breath, cough, diarrhea, and vomiting with recent COVID-19 contacts. 1.sepsis, POA viral vs bacterial pneumonia continue antibiotics add respiratory pathogen panel recheck covid 19 -- negative ID input appreciated 2. acute hypoxic respiratory failure due to above continue o2 3 hypothyroidism continue levothyroxine 4. seizures continue divalproex and carbamazepine 5. migraines continue amitriptyline and Topamax full code dvt pptx, lovenox
--- NOTE | 2020-09-03 16:01 | W.PM.IDCN ---
History of Present Illness Data of Consult Service Date: 09/03/20 Requesting physician: Gabe Ibanez Primary Care Provider: [facility] Reason for consult: shortness of breath She presents to hospital with cough and hypoxia She was found to be COVID negative She had reportedly been weak and falling She has no productive sputum or known COVID exposure Review of Systems Review of Systems: Yes all other systems are reviewed and are negative [facility] Past Medical History Medical History Acid reflux Chronic constipation HTN (hypertension) Kidney stones Migraine Seizure disorder Family History Family history: reviewed and not pertinent Surgical History Surgical History Hx of cystoscopy Social History Social History (Updated 08/25/20 @ 13:54 by Brionna Dorman) Alcohol intake: never Smoking Status: Never smoker Tobacco Type: Cigarette Use of substances other than those prescribed or required for medical reasons: No Currently Displaying Signs/Symptoms of Drug Intoxication Withdrawal: No Advance Directives: No Advance Directives Information Provided: No Do you have thoughts of harming others: None Do you have a plan to hurt others: No Plan service: No Current occupational status: disabled Meds Allergies Allergy/AdvReac Type Severity Reaction Status Date / Time ibuprofen [From MOTRIN] Allergy Unknown DIARRHEA/VOMIT, Verified 09/02/20 16:52 nausea and vomiting Active Medications: Current Medications Generic Name Dose Route Start Last Admin Trade Name Freq PRN Reason Stop Dose Admin Acetaminophen 650 mg 09/02/20 22:55 Acetaminophen 325 Mg Tablet PO Q6H PRN Fever Acetaminophen/Codeine Phosphate 1 tab 09/02/20 22:55 09/03/20 04:29 Acetaminophen With Codeine # 3 Tablet PO 1 tab Q12H PRN Administration Pain Amitriptyline HCl 100 mg 09/03/20 09:00 09/03/20 08:30 Amitriptyline Hcl 50 Mg Tablet PO 100 mg DAILY DONNA Administration Atorvastatin Calcium 20 mg 09/03/20 09:00 09/03/20 08:35 Atorvastatin Calcium 20 Mg Tablet PO 20 mg DAILY DONNA Administration Azithromycin 500 mg 09/03/20 06:00 09/03/20 06:39 Azithromycin 500 Mg Tablet PO 500 mg Q24H DONNA Administration Carbamazepine 200 mg 09/02/20 23:00 09/03/20 03:02 Carbamazepine Er 100 Mg Tab.Er.12h PO 200 mg Q12H DONNA Administration Clonazepam 1 mg 09/02/20 22:55 Clonazepam 1 Mg Tablet PO BID PRN Anxiety Clonidine HCl 0.1 mg 09/03/20 09:00 09/03/20 14:12 Clonidine Hcl 0.1 Mg Tablet PO 0.1 mg TID DONNA Administration Protocol Dexamethasone Sodium Phosphate 6 mg 09/03/20 09:00 09/03/20 08:37 Dexamethasone Sod Phosphate 4 Mg/Ml Vial IVPUSH 6 mg DAILY DONNA Administration Divalproex Sodium 500 mg 09/03/20 09:00 09/03/20 08:32 Divalproex Sodium Er 500 Mg Tab.Er.24h PO 500 mg DAILY DONNA Administration Enoxaparin Sodium 40 mg 09/03/20 23:00 Enoxaparin Sodium 40 Mg/0.4 Ml Syringe SUBCUT Q24H DONNA Famotidine 20 mg 09/03/20 09:00 09/03/20 08:32 Famotidine 20 Mg Tablet PO 20 mg BID DONNA Administration Fluticasone Propionate 1 puff 09/03/20 08:00 09/03/20 07:39 Fluticasone Propionate 250 Mcg Blst.W.Dev INHALE Not Given RBID DONNA Gabapentin 300 mg 09/03/20 09:00 09/03/20 14:12 Gabapentin 300 Mg Capsule PO 300 mg TID DONNA Administration Ceftriaxone Sodium 1 gm/ 50 mls @ 100 mls/hr 09/03/20 06:00 09/03/20 07:33 Sodium Chloride IV Infused Q24H [facility] Infusion Levothyroxine Sodium 25 mcg 09/03/20 09:00 09/03/20 08:32 Levothyroxine Sodium 25 Mcg Tablet PO 25 mcg DAILY DONNA Administration Melatonin 3 - 6 mg 09/02/20 22:55 Melatonin 3 Mg Tablet PO BEDTIME PRN Insomnia Omeprazole 20 mg 09/03/20 09:00 09/03/20 08:32 Omeprazole 20 Mg Capsule.Dr PO 20 mg DAILY DONNA Administration Ondansetron HCl 4 mg 09/02/20 22:55 Ondansetron Hcl 4 Mg/2 Ml Vial IVPUSH Q8H PRN Nausea and Vomiting Pharmacy Consult 1 each 09/02/20 16:28 Consult Rx Perform Med Rec MISCELLANE ONCE PRN Consult order Quetiapine Fumarate 100 mg 09/03/20 09:00 09/03/20 08:38 Quetiapine Fumarate 100 Mg Tablet PO 100 mg BID DONNA Administration Sertraline HCl 50 mg 09/03/20 09:00 09/03/20 08:36 Sertraline Hcl 50 Mg Tablet PO 50 mg DAILY DONNA Administration Sodium Chloride 3 ml 09/03/20 00:00 09/03/20 08:29 0.9 % Sodium Chloride Flush 3 Ml Syringe IVFLUSH 3 ml QSHIFT DONNA Administration Topiramate 100 mg 09/03/20 09:00 09/03/20 08:30 Topiramate 100 Mg Tablet PO 100 mg BID DONNA Administration Home Medications Medication Instructions Recorded Confirmed Last Taken Type atorvastatin 20 mg tablet 20 mg PO DAILY 07/23/20 09/02/20 Unknown History gabapentin 300 mg capsule 300 mg PO TID 07/23/20 09/02/20 Unknown History meloxicam 7.5 mg tablet 7.5 mg PO DAILY 07/23/20 09/02/20 Unknown History omeprazole 20 mg capsule,delayed 20 mg PO DAILY 07/23/20 09/02/20 Unknown History release acetaminophen-codeine 1 tab PO Q12H PRN 09/02/20 09/02/20 Unknown History amitriptyline 100 mg PO DAILY 09/02/20 09/03/20 Unknown History carbamazepine 200 mg PO Q12H 09/02/20 09/03/20 Unknown History cholecalciferol (vitamin D3) 1,250 mcg PO QWEEK 09/02/20 09/02/20 Unknown History clonazepam 1 mg PO BID PRN 09/02/20 09/03/20 Unknown History clonidine HCl 0.1 mg PO TID 09/02/20 09/03/20 Unknown History divalproex 500 mg PO DAILY 09/02/20 09/03/20 Unknown History docusate sodium 100 mg PO BID PRN 09/02/20 09/03/20 Unknown History famotidine 20 mg PO BID 09/02/20 09/03/20 Unknown History fluticasone propionate 1 puff INHALATION BID 09/02/20 09/02/20 Unknown History levothyroxine [Synthroid] 25 mcg PO DAILY 09/02/20 09/02/20 Unknown History melatonin 3 - 6 mg PO BEDTIME PRN 09/02/20 09/03/20 Unknown History quetiapine [Seroquel] 100 mg PO BID 09/02/20 09/02/20 Unknown History sertraline [Zoloft] 50 mg PO DAILY 09/02/20 09/02/20 Unknown History topiramate 100 mg PO BID 09/02/20 09/03/20 Unknown History Physical Exam Vital Signs: Vital Signs: Last Vital Signs Temp 98.2 F 09/03/20 14:01 Pulse 97 09/03/20 14:12 Resp 16 09/03/20 12:00 BP 120/76 09/03/20 14:12 Pulse Ox 92 09/03/20 12:00 Body Mass Index 29.8 Const: General: cooperative Orientation/consciousness: patient oriented x3 HENMT: Head: Yes normal to inspection Throat: Yes posterior oropharynx normal Eyes: General: appearance normal, both eyes and all related structures Resp: Effort & Inspection: normal respiratory effort Cardio: Rate: regular rate Rhythm: regular rhythm GI: Palpation (GI): Soft to palpation and nontender : General: Yes no CVA tenderness Back/Spine/Pelvis: Back: no CVA tenderness Skin: General skin exam: no rashes or lesions noted Neuro: General: patient oriented x3 Extrem: General: Yes normal to inspection Results Labs CBC & Chem 7: 09/03/20 12:27 09/03/20 05:30 Labs: Short CBC 09/02/20 09/03/20 09/03/20 Range/Units 17:13 05:30 12:27 WBC 6.6 6.2 7.5 (4.8-10.8) X10*3/uL Hgb 10.7 L 10.6 L 10.2 L (12.0-16.0) g/dl Hct 34.7 L 34.5 L 33.0 L (37-47) % Plt Count 275 248 298 (160-400) X10*3/uL BMP 09/02/20 09/03/20 17:13 05:30 Sodium 140 141 Potassium 3.7 4.0 Chloride 102 105 Carbon Dioxide 28 26 BUN 12 10 Creatinine 0.95 0.75 Calcium 7.4 L 7.3 L Cardiac Enzymes 09/02/20 09/03/20 Range/Units 17:13 12:27 Total Creatine Kinase 1664 H 955 H D (26-140) U/L Liver Function 09/02/20 Range/Units 17:13 Total Bilirubin 0.3 (0.0-1.0) mg/dL Direct Bilirubin 0.2 (0.0-0.5) mg/dL AST 59 H (5-31) U/L ALT 17 (0-31) U/L Alkaline Phosphatase 101 (39-117) U/L Albumin 3.5 (3.5-5.0) g/dL Urine 09/02/20 Range/Units 23:25 Urine Color YELLOW Urine Appearance HAZY Urine pH 6.5 (5.0-8.0) Ur Specific [place] 1.010 (1.005-1.025) Urine Protein NEG (NEG-TRACE) MG/DL Urine Glucose (UA) NEG (NEG) MG/DL Assessment and Plan (1) Acute respiratory failure with hypoxia: Problem details: Possible problems include COVID ,but would be unusual to have symptoms and negative test,PCR There is also possible atypical infection Collagen vascular disease also possible Status: Acute Check RVP include other pathogens Check COVID antibodies Doxycycline cover atypical pathogens likely 10d Maintain respiratory isolation for now Check VTE
[2020-09-03] MEDS: Doxycycline Hyclate 100 MG in 0.9 % Sodium Chloride 250 ML 166.67 MG IV (18:03)
[2020-09-03] MEDS: Fluticasone Propionate 250 MCG BLST.W.DEV 1 PUFF INHALE (19:50)
[2020-09-03] MEDS: Enoxaparin Sodium 40 MG/0.4 ML SYRINGE SUBCUT (22:10)
--- NOTE | 2020-09-03 22:52 | PC.NURSE ---
21:30 patient complaining of 10/10 chest pain with inspiration. Patient states she has been having chest pain prior to admission. Sinus rhythm on the monitor. Other vital signs stable. Patient does complain of dizziness upon ambulation. Dr Boyer notified, no new orders at this time. PRN Tylenol with Codeine given for pain and cough. Patient resting in bed, high fall risk measures in place.
[2020-09-03] MEDS: clonazePAM 1 MG TABLET PO (23:41)
[2020-09-04] VITALS (12 sets, daily range): BP systolic 135–180; BP diastolic 68–95; PULSE 92–124; RESP 18–33; TEMP 36.8–38.1; O2SAT 90–95
[2020-09-04] MEDS: Acetaminophen 325 MG TABLET 650 MG PO (03:06)
[2020-09-04 04:10] LABS: SARS COV2 IgG Positive (Negative)
--- NOTE | 2020-09-04 04:50 | PC.NURSE ---
care assumed 23:15...awake..alert...oriented x3...c/o shaking chills and body aches 3am...s.tach hr 120's..temp normal...tylenol po given..gradual decreased hr...temp up to 100.6 and no further chills...ugarte...o2 titrated to 5 l/m..respirations easy...raised small amount thick blood-tinged brown sputum...voided on commode and passed loose brown stool x1
[2020-09-04] MEDS: Doxycycline Hyclate 100 MG in 0.9 % Sodium Chloride 250 ML 166.67 MG IV ×2 (06:11→18:01)
[2020-09-04] MEDS: Fluticasone Propionate 250 MCG BLST.W.DEV 1 PUFF INHALE (07:50)
[2020-09-04 08:32] LABS: Hemoglobin 10.9 g/dl (12.0-16.0); Mean Corpuscular HGB Conc 31.1 g/dl (31.0-35.0); Mean Corpuscular Hemoglobin 29.5 pg (27.0-33.0); Mean Corpuscular Volume 94.9 fL (80-98); Mean Platelet Volume 10.5 fL (9.4-12.3); Platelet Count 329 X10*3/uL (160-400); Red Blood Count 3.69 X10*6/uL (4.20-5.50); Red Cell Distribution Width 13.6 % (11.0-16.0); White Blood Count 7.7 X10*3/uL (4.8-10.8)
[2020-09-04] MEDS: 0.9 % Sodium Chloride Flush 3 ML SYRINGE IVFLUSH ×3 (08:53→22:26)
[2020-09-04] MEDS: dexAMETHasone sod phosphate 4 MG/ML VIAL 6 MG IVPUSH (08:54)
[2020-09-04] MEDS: cloNIDine HCL 0.1 MG TABLET PO ×3 (08:55→22:21)
[2020-09-04] MEDS: Gabapentin 300 MG CAPSULE PO ×3 (08:55→22:22)
[2020-09-04] MEDS: Amitriptyline HCl 50 MG TABLET 100 MG PO (08:56)
[2020-09-04 08:57] LABS: Anion Gap 16 (12-20); Blood Urea Nitrogen 8 mg/dL (9-16); Calcium 7.4 mg/dL (8.4-10.2); Carbon Dioxide 25 mmol/L (22-29); Chloride 107 mmol/L (96-108); Creatinine Clr Calc Pharmacy 77.6; Estimated Glomerular Filt Rate > 60; Glucose Random 85 mg/dL (60-115); Potassium 4.5 mmol/L (3.3-5.1); Sodium 143 mmol/L (135-145)
[2020-09-04] MEDS: Topiramate 100 MG TABLET PO ×2 (08:57→22:22)
[2020-09-04] MEDS: Levothyroxine Sodium 25 MCG TABLET PO (08:57)
[2020-09-04] MEDS: Divalproex Sodium ER 500 MG TAB.ER.24H PO (08:58)
[2020-09-04] MEDS: Omeprazole 20 MG CAPSULE.DR PO (08:58)
[2020-09-04] MEDS: Sertraline HCL 50 MG TABLET PO (08:58)
[2020-09-04] MEDS: Atorvastatin Calcium 20 MG TABLET PO (08:59)
[2020-09-04] MEDS: Famotidine 20 MG TABLET PO ×2 (08:59→22:22)
[2020-09-04] MEDS: carBAMazepine ER 100 MG TAB.ER.12H 200 MG PO (09:04)
--- NOTE | 2020-09-04 09:11 | P.PNIM_ITS ---
Subjective Subjective Date of Service: 09/04/20 Interval History: seen and examined this AM reports not feeling good. feels tired temp early this AM noted d/w the patients significant other - Anselmo Bolivar - @ [phone] who reports he tested positive last week for COVID-19 ROS General - no fevers or chills, +malaise/fatigue Cardiovascular - no chest pain Respiratory - no shortness of breath or cough Abdominal- no abdominal pain, nausea, vomiting, diarrhea Physical Exam Vital Signs: Vital Signs: Last Vital Signs Temp 98.7 F 09/04/20 08:00 Pulse 118 H 09/04/20 08:00 Resp 33 H 09/04/20 08:00 BP 159/88 H 09/04/20 08:55 Pulse Ox 92 09/04/20 08:00 Body Mass Index 29.8 Const: General: cooperative and no acute distress Orientation/consciousness: patient oriented x3 Eyes: General: appearance normal, both eyes and all related structures Pupils: Equal, round and reactive pupils present Resp: Effort & Inspection: normal respiratory effort and able to speak in complete sentences Auscultation: rales Cardio: Rate: regular rate Rhythm: regular rhythm GI: Palpation (GI): Soft to palpation Auscultation: normal bowel sounds Skin: General skin exam: no rashes or lesions noted Neuro: General: patient oriented x3 Cranial nerves: Yes Equal, round and reactive pupils present Cognition (Neuro): normal cognition Extrem: General: Yes normal to inspection and Yes no pedal edema Objective Data Current Medications Generic Name Dose Route Start Last Admin Trade Name Freq PRN Reason Stop Dose Admin Acetaminophen 650 mg 09/02/20 22:55 09/04/20 03:06 Acetaminophen 325 Mg Tablet PO 650 mg Q6H PRN Administration Fever Acetaminophen/Codeine Phosphate 1 tab 09/02/20 22:55 09/03/20 22:11 Acetaminophen With Codeine # 3 Tablet PO 1 tab Q12H PRN Administration Pain Amitriptyline HCl 100 mg 09/03/20 09:00 09/04/20 08:56 Amitriptyline Hcl 50 Mg Tablet PO 100 mg DAILY DONNA Administration Atorvastatin Calcium 20 mg 09/03/20 09:00 09/04/20 08:59 Atorvastatin Calcium 20 Mg Tablet PO 20 mg DAILY DONNA Administration Carbamazepine 200 mg 09/02/20 23:00 09/04/20 09:04 Carbamazepine Er 100 Mg Tab.Er.12h PO 200 mg Q12H DONNA Administration Clonazepam 1 mg 09/02/20 22:55 09/03/20 23:41 Clonazepam 1 Mg Tablet PO 1 mg BID PRN Administration Anxiety Clonidine HCl 0.1 mg 09/03/20 09:00 09/04/20 08:55 Clonidine Hcl 0.1 Mg Tablet PO 0.1 mg TID DONNA Administration Protocol Dexamethasone Sodium Phosphate 6 mg 09/03/20 09:00 09/04/20 08:54 Dexamethasone Sod Phosphate 4 Mg/Ml Vial IVPUSH 6 mg DAILY DONNA Administration Divalproex Sodium 500 mg 09/03/20 09:00 09/04/20 08:58 Divalproex Sodium Er 500 Mg Tab.Er.24h PO 500 mg DAILY DONNA Administration Enoxaparin Sodium 40 mg 09/03/20 23:00 09/03/20 22:10 Enoxaparin Sodium 40 Mg/0.4 Ml Syringe SUBCUT 40 mg Q24H DONNA Administration Famotidine 20 mg 09/03/20 09:00 09/04/20 08:59 Famotidine 20 Mg Tablet PO 20 mg BID DONNA Administration Fluticasone Propionate 1 puff 09/03/20 08:00 09/04/20 07:50 Fluticasone Propionate 250 Mcg Blst.W.Dev INHALE 1 puff RBID DONNA Administration Gabapentin 300 mg 09/03/20 09:00 09/04/20 08:55 Gabapentin 300 Mg Capsule PO 300 mg TID DONNA Administration Doxycycline Hyclate 100 mg/ 250 mls @ 166.67 mls/hr 09/03/20 18:00 09/04/20 09:00 Sodium Chloride IV Infused Q12H DONNA Infusion Levothyroxine Sodium 25 mcg 09/03/20 09:00 09/04/20 08:57 Levothyroxine Sodium 25 Mcg Tablet PO 25 mcg DAILY DONNA Administration Melatonin 3 - 6 mg 09/02/20 22:55 Melatonin 3 Mg Tablet PO BEDTIME PRN Insomnia Omeprazole 20 mg 09/03/20 09:00 09/04/20 08:58 Omeprazole 20 Mg Capsule.Dr PO 20 mg DAILY DONNA Administration Ondansetron HCl 4 mg 09/02/20 22:55 Ondansetron Hcl 4 Mg/2 Ml Vial IVPUSH Q8H PRN Nausea and Vomiting Pharmacy Consult 1 each 09/02/20 16:28 Consult Rx Perform Med Rec MISCELLANE ONCE PRN Consult order Quetiapine Fumarate 100 mg 09/03/20 09:00 09/04/20 08:58 Quetiapine Fumarate 100 Mg Tablet PO 100 mg BID DONNA Administration Sertraline HCl 50 mg 09/03/20 09:00 09/04/20 08:58 Sertraline Hcl 50 Mg Tablet PO 50 mg DAILY DONNA Administration Sodium Chloride 3 ml 09/03/20 00:00 09/04/20 08:53 0.9 % Sodium Chloride Flush 3 Ml Syringe IVFLUSH 3 ml QSHIFT DONNA Administration Topiramate 100 mg 09/03/20 09:00 09/04/20 08:57 Topiramate 100 Mg Tablet PO 100 mg BID DONNA Administration Labs CBC & Chem 7: 09/04/20 08:24 09/04/20 08:24 Microbiology Microbiology Results: Microbiology 09/02/20 17:57 Blood - Venous Blood Culture - Preliminary No growth after 24 hours. 09/02/20 17:13 Blood - Venous Blood Culture - Preliminary No growth after 24 hours. Assessment and Plan (1) Atypical pneumonia: Status: Acute (2) Sepsis: Status: Acute (3) Acute respiratory failure with hypoxia: Status: Acute (4) Pneumonia due to COVID-19 virus: Status: Deleted Assessment and Plan: This is a 55-year-old female with past medical history hypertension, migraine, seizure disorder who presents to the hospital with complaints of shortness of breath, cough, diarrhea, and vomiting with recent COVID-19 contacts in her significant other 1. Acute respiratory failure with hypoxia secondary to post-covid (swabs negative x 2; IgG positive) + suspected super- imposed bacterial pneumonia decadron day #2 CTA neg for PE 2 Sepsis, POA due to above doxycycline - day 09/03 ID input appreciated f/u cultures 3 hypothyroidism continue levothyroxine 4. seizures continue divalproex and carbamazepine 5. migraines continue amitriptyline and Topamax full code dvt pptx, lovenox
[2020-09-04 09:18] LABS: Procalcitonin 0.06 ng/mL
--- NOTE | 2020-09-04 09:43 | P.CDIC_ITS ---
CDI Concurrent Query Service Date: 09/04/20 Documentation Clarification: Please clarify if you are treating a proba ble/suspected/likely or confirmed: Non-traumatic Rhabdomyolysis Traumatic Rhabdomyolysis Please specify if known Unclear cause of rhabdo, possible traumatic with history of falls Provider Response: Other Other Diagnosis: Rhabdo, possibly traumatic PLEASE DO NOT DELETE/MODIFY EXISTING CONTENT Additional information is needed in order to code to the highest accuracy and appropriate Severity of Illness (SOI). Please clarify the information noted below in your progress notes and discharge summary. Risk Factors/Clinical Indicators/Treatments ED: CPK 1664 H consistent with rhabdo. Multiple falls at home w unknown LOC/syncope or head trauma. CPK 955 H CDS: Margaret Hargrove CCS, [facility] Contact Number: [phone] Please Review the information above and exercise your independent professional judgment in responding to the query. If you concur, pleas document in the PROGRESS NOTES and DISCHARGE SUMMARY. If you do not agree with the query, please document in the query above. THIS QUERY IS PART OF THE PERMANENT MEDICAL RECORD
[2020-09-04] MEDS: QUEtiapine Fumarate 100 MG TABLET PO (22:21)
[2020-09-04] MEDS: carBAMazepine ER 200 MG TAB.ER.12H PO (22:21)
[2020-09-04] MEDS: Enoxaparin Sodium 40 MG/0.4 ML SYRINGE SUBCUT (23:16)
[2020-09-05] VITALS (10 sets, daily range): BP systolic 139–186; BP diastolic 63–99; PULSE 84–102; RESP 16–21; TEMP 36.3–37; O2SAT 91–97
[2020-09-05] MEDS: Acetaminophen 325 MG TABLET 650 MG PO (01:45)
[2020-09-05] MEDS: Doxycycline Hyclate 100 MG in 0.9 % Sodium Chloride 250 ML 166.67 MG IV ×2 (06:06→17:38)
[2020-09-05 07:06] LABS: Hematocrit 32.8 % (37-47); Hemoglobin 10.3 g/dl (12.0-16.0); Mean Corpuscular HGB Conc 31.4 g/dl (31.0-35.0); Mean Corpuscular Volume 92.4 fL (80-98); Mean Platelet Volume 11.2 fL (9.4-12.3); Platelet Count 324 X10*3/uL (160-400); Red Blood Count 3.55 X10*6/uL (4.20-5.50); Red Cell Distribution Width 13.3 % (11.0-16.0); White Blood Count 7.3 X10*3/uL (4.8-10.8)
[2020-09-05 07:28] LABS: Anion Gap 19 (12-20); Blood Urea Nitrogen 9 mg/dL (9-16); Calcium 7.2 mg/dL (8.4-10.2); Carbon Dioxide 17 mmol/L (22-29); Chloride 108 mmol/L (96-108); Estimated Glomerular Filt Rate > 60; Glucose Random 72 mg/dL (60-115); Potassium 3.7 mmol/L (3.3-5.1); Sodium 140 mmol/L (135-145)
[2020-09-05] MEDS: Amitriptyline HCl 50 MG TABLET 100 MG PO (08:22)
[2020-09-05] MEDS: dexAMETHasone sod phosphate 4 MG/ML VIAL 6 MG IVPUSH (08:22)
[2020-09-05] MEDS: 0.9 % Sodium Chloride Flush 3 ML SYRINGE IVFLUSH ×3 (08:22→22:03)
[2020-09-05] MEDS: QUEtiapine Fumarate 100 MG TABLET PO ×2 (08:22→22:02)
[2020-09-05] MEDS: Sertraline HCL 50 MG TABLET PO (08:22)
[2020-09-05] MEDS: Famotidine 20 MG TABLET PO ×2 (08:22→22:03)
[2020-09-05] MEDS: cloNIDine HCL 0.1 MG TABLET PO ×3 (08:22→22:03)
[2020-09-05] MEDS: Omeprazole 20 MG CAPSULE.DR PO (08:22)
[2020-09-05] MEDS: Gabapentin 300 MG CAPSULE PO ×3 (08:22→22:03)
[2020-09-05] MEDS: Levothyroxine Sodium 25 MCG TABLET PO (08:22)
[2020-09-05] MEDS: Topiramate 100 MG TABLET PO ×2 (08:22→22:03)
[2020-09-05] MEDS: Divalproex Sodium ER 500 MG TAB.ER.24H PO (08:22)
[2020-09-05] MEDS: Atorvastatin Calcium 20 MG TABLET PO (08:22)
[2020-09-05] MEDS: carBAMazepine ER 200 MG TAB.ER.12H PO ×2 (08:23→22:03)
[2020-09-05] MEDS: Fluticasone Propionate 250 MCG BLST.W.DEV 1 PUFF INHALE ×2 (08:23→20:04)
--- NOTE | 2020-09-05 11:23 | MHC.CM.PN ---
Patient is not yet medically cleared for dc (day 3 of IV Decadron, receiving IV Doxycycline r/t PNA & 5L O2). Home with services that were already in place is the goal fo dc and CM will follow for possible need to adjust the dc plan.
--- NOTE | 2020-09-05 13:48 | P.PNIM_ITS ---
Subjective Subjective Date of Service: 09/05/20 Interval History: seen and examined this AM feels tired breathing slightly eaiser d/w the patients significant other - Anselmo Bolivar - @ [phone] who reports he tested positive last week for COVID-19 ROS General - no fevers or chills, +malaise/fatigue Cardiovascular - no chest pain Respiratory - no shortness of breath or cough Abdominal- no abdominal pain, nausea, vomiting, diarrhea Physical Exam Vital Signs: Vital Signs: Last Vital Signs Temp 98.0 F 09/05/20 12:00 Pulse 95 09/05/20 12:00 Resp 20 09/05/20 12:00 BP 147/75 H 09/05/20 12:00 Pulse Ox 93 09/05/20 12:00 Body Mass Index 29.8 Const: General: cooperative and no acute distress Orientation/consciousness: patient oriented x3 Eyes: General: appearance normal, both eyes and all related structures Pupils: Equal, round and reactive pupils present Resp: Effort & Inspection: normal respiratory effort and able to speak in complete sentences Auscultation: rales Cardio: Rate: regular rate Rhythm: regular rhythm GI: Palpation (GI): Soft to palpation Auscultation: normal bowel sounds Skin: General skin exam: no rashes or lesions noted Neuro: General: patient oriented x3 Cranial nerves: Yes Equal, round and reactive pupils present Cognition (Neuro): normal cognition Extrem: General: Yes normal to inspection and Yes no pedal edema Objective Data Current Medications Generic Name Dose Route Start Last Admin Trade Name Freq PRN Reason Stop Dose Admin Acetaminophen 650 mg 09/02/20 22:55 09/05/20 01:45 Acetaminophen 325 Mg Tablet PO 650 mg Q6H PRN Administration Fever Acetaminophen/Codeine Phosphate 1 tab 09/02/20 22:55 09/03/20 22:11 Acetaminophen With Codeine # 3 Tablet PO 1 tab Q12H PRN Administration Pain Amitriptyline HCl 100 mg 09/03/20 09:00 09/05/20 08:22 Amitriptyline Hcl 50 Mg Tablet PO 100 mg DAILY DONNA Administration Atorvastatin Calcium 20 mg 09/03/20 09:00 09/05/20 08:22 Atorvastatin Calcium 20 Mg Tablet PO 20 mg DAILY DONNA Administration Carbamazepine 200 mg 09/04/20 21:00 09/05/20 08:23 Carbamazepine Er 200 Mg Tab.Er.12h PO 200 mg Q12H DONNA Administration Clonazepam 1 mg 09/02/20 22:55 09/03/20 23:41 Clonazepam 1 Mg Tablet PO 1 mg BID PRN Administration Anxiety Clonidine HCl 0.1 mg 09/03/20 09:00 09/05/20 08:22 Clonidine Hcl 0.1 Mg Tablet PO 0.1 mg TID DONNA Administration Protocol Dexamethasone Sodium Phosphate 6 mg 09/03/20 09:00 09/05/20 08:22 Dexamethasone Sod Phosphate 4 Mg/Ml Vial IVPUSH 6 mg DAILY DONNA Administration Divalproex Sodium 500 mg 09/03/20 09:00 09/05/20 08:22 Divalproex Sodium Er 500 Mg Tab.Er.24h PO 500 mg DAILY DONNA Administration Enoxaparin Sodium 40 mg 09/03/20 23:00 09/04/20 23:16 Enoxaparin Sodium 40 Mg/0.4 Ml Syringe SUBCUT 40 mg Q24H DONNA Administration Famotidine 20 mg 09/03/20 09:00 09/05/20 08:22 Famotidine 20 Mg Tablet PO 20 mg BID DONNA Administration Fluticasone Propionate 1 puff 09/03/20 08:00 09/05/20 08:23 Fluticasone Propionate 250 Mcg Blst.W.Dev INHALE 1 puff RBID DONNA Administration Gabapentin 300 mg 09/03/20 09:00 09/05/20 08:22 Gabapentin 300 Mg Capsule PO 300 mg TID DONNA Administration Doxycycline Hyclate 100 mg/ 250 mls @ 166.67 mls/hr 09/03/20 18:00 09/05/20 07:43 Sodium Chloride IV Infused Q12H DONNA Infusion Levothyroxine Sodium 25 mcg 09/03/20 09:00 09/05/20 08:22 Levothyroxine Sodium 25 Mcg Tablet PO 25 mcg DAILY DONNA Administration Melatonin 3 - 6 mg 09/02/20 22:55 Melatonin 3 Mg Tablet PO BEDTIME PRN Insomnia Omeprazole 20 mg 09/03/20 09:00 09/05/20 08:22 Omeprazole 20 Mg Capsule.Dr PO 20 mg DAILY DONNA Administration Ondansetron HCl 4 mg 09/02/20 22:55 Ondansetron Hcl 4 Mg/2 Ml Vial IVPUSH Q8H PRN Nausea and Vomiting Pharmacy Consult 1 each 09/02/20 16:28 Consult Rx Perform Med Rec MISCELLANE ONCE PRN Consult order Quetiapine Fumarate 100 mg 09/03/20 09:00 09/05/20 08:22 Quetiapine Fumarate 100 Mg Tablet PO 100 mg BID DONNA Administration Sertraline HCl 50 mg 09/03/20 09:00 09/05/20 08:22 Sertraline Hcl 50 Mg Tablet PO 50 mg DAILY DONNA Administration Sodium Chloride 3 ml 09/03/20 00:00 09/05/20 08:22 0.9 % Sodium Chloride Flush 3 Ml Syringe IVFLUSH 3 ml QSHIFT DONNA Administration Topiramate 100 mg 09/03/20 09:00 09/05/20 08:22 Topiramate 100 Mg Tablet PO 100 mg BID DONNA Administration Labs CBC & Chem 7: 09/05/20 05:45 09/05/20 05:45 Microbiology Microbiology Results: Microbiology 09/02/20 17:57 Blood - Venous Blood Culture - Preliminary No growth after 48 hours. 09/02/20 17:13 Blood - Venous Blood Culture - Preliminary No growth after 48 hours. 09/03/20 Unknown Urine clean catch - Clean Catch Midstream Urine Culture - Final Assessment and Plan (1) Atypical pneumonia: Status: Acute (2) Sepsis: Status: Acute (3) Acute respiratory failure with hypoxia: Status: Acute (4) Pneumonia due to COVID-19 virus: Status: Deleted Assessment and Plan: This is a 55-year-old female with past medical history hypertension, migraine, seizure disorder who presents to the hospital with complaints of shortness of breath, cough, diarrhea, and vomiting with recent COVID-19 contacts in her significant other 1. Acute respiratory failure with hypoxia secondary to post-covid (swabs negative x 2; IgG positive) + suspected super- imposed bacterial pneumonia decadron day #3 CTA neg for PE improving, down to 2L by NC 2 Sepsis, POA due to above doxycycline - day 10/01 ID input appreciated f/u cultures 3 hypothyroidism continue levothyroxine 4. seizures continue divalproex and carbamazepine 5. migraines continue amitriptyline and Topamax full code dvt pptx, lovenox dispo: home once hypoxia resolves, anticipate next 48 hours or so
[2020-09-05] MEDS: clonazePAM 1 MG TABLET PO (17:44)
[2020-09-05] MEDS: Enoxaparin Sodium 40 MG/0.4 ML SYRINGE SUBCUT (22:32)
[2020-09-05] MEDS: Melatonin 3 MG TABLET PO (22:35)
[2020-09-06] VITALS: BP 136/68; PULSE 77; RESP 18; TEMP 36.6; O2SAT 92
[2020-09-06 03:41] VITALS: BP 150/83; PULSE 101; RESP 18; TEMP 36.6; O2SAT 92
[2020-09-06] MEDS: Doxycycline Hyclate 100 MG in 0.9 % Sodium Chloride 250 ML 166.67 MG IV (05:55)
[2020-09-06 07:14] VITALS: BP 170/84; PULSE 93; RESP 18; TEMP 35.5; O2SAT 93
[2020-09-06] MEDS: Omeprazole 20 MG CAPSULE.DR PO (08:15)
[2020-09-06] MEDS: 0.9 % Sodium Chloride Flush 3 ML SYRINGE IVFLUSH (08:15)
[2020-09-06] MEDS: dexAMETHasone sod phosphate 4 MG/ML VIAL 6 MG IVPUSH (08:15)
[2020-09-06 08:16] VITALS: BP 170/84; PULSE 93
[2020-09-06] MEDS: cloNIDine HCL 0.1 MG TABLET PO (08:16)
[2020-09-06] MEDS: Topiramate 100 MG TABLET PO (08:16)
[2020-09-06] MEDS: carBAMazepine ER 200 MG TAB.ER.12H PO (08:16)
[2020-09-06] MEDS: Famotidine 20 MG TABLET PO (08:16)
[2020-09-06] MEDS: QUEtiapine Fumarate 100 MG TABLET PO (08:16)
[2020-09-06] MEDS: Levothyroxine Sodium 25 MCG TABLET PO (08:16)
[2020-09-06] MEDS: Divalproex Sodium ER 500 MG TAB.ER.24H PO (08:16)
[2020-09-06] MEDS: Sertraline HCL 50 MG TABLET PO (08:16)
[2020-09-06] MEDS: Atorvastatin Calcium 20 MG TABLET PO (08:16)
[2020-09-06] MEDS: Amitriptyline HCl 50 MG TABLET 100 MG PO (08:16)
[2020-09-06] MEDS: Gabapentin 300 MG CAPSULE PO (08:17)
[2020-09-06 08:30] VITALS: PULSE 102; O2SAT 92
[2020-09-06] MEDS: Fluticasone Propionate 250 MCG BLST.W.DEV 1 PUFF INHALE (08:30)
[2020-09-06 11:11] VITALS: BP 148/69; PULSE 95; RESP 18; TEMP 36.1; O2SAT 92
--- NOTE | 2020-09-06 12:27 | P.DS_ITS ---
DS: Providers Provider Date of Service: 09/06/20 Date of admission: 09/02/20 22:55 Primary care physician: [facility] Consults: 09/03/20 07:36 Consult to Infectious Diseases Routine Consulting Provider: Francie Yung Reason for consultation: negative covid swab, ct concerning for covid DS: Diagnosis Discharge Diagnosis (1) Post-COVID syndrome: Status: Acute (2) Sepsis: Status: Acute (3) Acute respiratory failure with hypoxia: Status: Acute DS: Medications Discharge Medications Home Medications: Home Medications Medication Instructions Recorded Confirmed atorvastatin 20 mg tablet 20 mg PO DAILY 07/23/20 09/02/20 gabapentin 300 mg capsule 300 mg PO TID 07/23/20 09/02/20 meloxicam 7.5 mg tablet 7.5 mg PO DAILY 07/23/20 09/02/20 omeprazole 20 mg capsule,delayed 20 mg PO DAILY 07/23/20 09/02/20 release acetaminophen-codeine 1 tab PO Q12H PRN 09/02/20 09/02/20 amitriptyline 100 mg PO DAILY 09/02/20 09/03/20 carbamazepine 200 mg PO Q12H 09/02/20 09/03/20 cholecalciferol (vitamin D3) 1,250 mcg PO QWEEK 09/02/20 09/02/20 clonazepam 1 mg PO BID PRN 09/02/20 09/03/20 clonidine HCl 0.1 mg PO TID 09/02/20 09/03/20 divalproex 500 mg PO DAILY 09/02/20 09/03/20 docusate sodium 100 mg PO BID PRN 09/02/20 09/03/20 famotidine 20 mg PO BID 09/02/20 09/03/20 fluticasone propionate 1 puff INHALATION BID 09/02/20 09/02/20 levothyroxine [Synthroid] 25 mcg PO DAILY 09/02/20 09/02/20 melatonin 3 - 6 mg PO BEDTIME PRN 09/02/20 09/03/20 quetiapine [Seroquel] 100 mg PO BID 09/02/20 09/02/20 sertraline [Zoloft] 50 mg PO DAILY 09/02/20 09/02/20 topiramate 100 mg PO BID 09/02/20 09/03/20 Previous Rx's Medication Instructions Recorded dexamethasone [Decadron] 8 mg PO DAILY #12 tab 09/06/20 doxycycline hyclate 100 mg PO BID #12 tab 09/06/20 DS: Summary Hospital Course Hospital Course: Patient presented with respiratory symptoms and signs suggestive COVID-19. Her nasal swab was negative, however CT findings were concerning for COVID-19. She was started on IV Decadron, IV doxycycline and supplemental oxygen. She had a repeat COVID swab which remain negative. Her IgG was checked which returned positive. She was checked for atypical infections and this workup was also negative. Fortunately with some IV steroids over the course of 4 days her hypoxia resolved and she was symptomatically improved. She will be discharged home to complete a course of 10 days of Decadron and doxycycline. Symptoms are most likely related to post COVID inflmmatory changes of the lung with the possibility of super-imposed bacterial pneumonia. She has been strongly encouraged complete tobacco cessation. Time Spent with Patient Time attestation: Total time spent providing and/or coordinating discharge services: Discharge coordination time: Greater than 30 minutes Physical Exam Vital Signs: Vital Signs: Last Vital Signs Temp 97 F 09/06/20 11:11 Pulse 95 09/06/20 11:11 Resp 18 09/06/20 11:11 BP 148/69 H 09/06/20 11:11 Pulse Ox 92 09/06/20 11:11 Body Mass Index 29.8 Const: Other: General - no acute distress, appears comfortable Cardiovascular - regular rate and rhythm, S1-S2 Lungs - normal respiratory effort, clear to auscultation bilaterally, no wheezing Abdomen - soft, nontender, no rebound or guarding Extremities - no edema bilaterally Neuro - awake and alert, no focal deficits DS: Data Data Completed and Pending Labs on day of discharge: Preliminary micro results at discharge 09/02/20 17:57 Blood Culture - Preliminary Blood - Venous No growth after 48 hours. 09/02/20 17:13 Blood Culture - Preliminary Blood - Venous No growth after 48 hours. Discharge Plan Discharge Patient Disposition: Home Health Service Referrals: [facility] [Outside] Center,Count Includes [facility] [Primary Care Provider] - Discharge Medications: New dexamethasone [Decadron] 4 mg tablet 8 mg PO DAILY Qty: 12 RF: 0 doxycycline hyclate 100 mg tablet 100 mg PO BID Qty: 12 RF: 0 Continued clonidine HCl 0.1 mg tablet 0.1 mg PO TID RF: 0 carbamazepine 100 mg tablet extended release 12 hr 200 mg PO Q12H RF: 0 clonazepam 1 mg tablet 1 mg PO BID PRN (Reason: Anxiety) RF: 0 melatonin 3 mg tablet 3 - 6 mg PO BEDTIME PRN (Reason: Insomnia) RF: 0 acetaminophen-codeine 300-30 mg tablet 1 tab PO Q12H PRN (Reason: Pain) RF: 0 famotidine 20 mg tablet 20 mg PO BID RF: 0 divalproex 500 mg tablet extended release 24 hr 500 mg PO DAILY RF: 0 docusate sodium 100 mg capsule 100 mg PO BID PRN (Reason: constipation) RF: 0 topiramate 100 mg tablet 100 mg PO BID RF: 0 sertraline [Zoloft] 50 mg tablet 50 mg PO DAILY RF: 0 amitriptyline 100 mg tablet 100 mg PO DAILY RF: 0 cholecalciferol (vitamin D3) 1,250 mcg (50,000 unit) capsule 1,250 mcg PO QWEEK RF: 0 quetiapine [Seroquel] 100 mg Tablet 100 mg PO BID RF: 0 levothyroxine [Synthroid] 25 mcg Tablet 25 mcg PO DAILY RF: 0 fluticasone propionate 220 mcg/actuation Hfa Aerosol Inhaler 1 puff INHALATION BID RF: 0 meloxicam 7.5 mg tablet 7.5 mg PO DAILY RF: 0 gabapentin 300 mg capsule 300 mg PO TID RF: 0 atorvastatin 20 mg tablet 20 mg PO DAILY RF: 0 omeprazole 20 mg capsule,delayed release(DR/EC) 20 mg PO DAILY RF: 0 Discharge Orders: Discharge Order (Routine); Ordered 09/06/20 Ordered By: Gabe Ibanez Diet: advance to usual diet Activity on Discharge: As tolerated Stand Alone Forms: Patient Portal Discharge page Print Language: Sami Care Plan Goals: To stay healthy and out of the hospital. Health Concerns: COVID Pneumonia Plan of Treatment: COVID Pneumonia - Your blood work shows that you have antibodies for COVID. Take Decadron and Doxycycline as prescribed. Do not smoke tobacco. Discharge Date/Time: 09/06/20 13:48
--- NOTE | 2020-09-06 13:36 | MHC.CM.PN ---
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
[2020-09-07 15:16] LABS: Strep Pneumo Ag urine Not Detected (Not Detected)
[2020-09-11 11:41] LABS: Legionella Ag Urine Not Detected (Not Detected)
== END 2020-09-06 13:48 | disposition home health service (06) | DRG 139 ==
LOC: HO.ED 21:09 → HO.IMC 23:52 → HO.EDOVER 09-03 00:07 → HO.ICU 09-03 00:33 → HO.IMC 09-04 12:18
PROVIDERS: Internal Medicine; Internal Medicine Cardiovascular Disease; Physician Assistant; Admitting Provider Internal Medicine; Emergency Provider Emergency Medicine; Visit Provider Family Medicine
DX: J18.9 Pneumonia, unspecified organism (principal); E03.9 Hypothyroidism, unspecified; G40.909 Epilepsy, unspecified, not intractable, without status epilepticus; I10 Essential (primary) hypertension; Z87.442 Personal history of urinary calculi; T79.6XXA Traumatic ischemia of muscle, initial encounter; W19.XXXA Unspecified fall, initial encounter; Z91.81 History of falling; Z20.822 Contact with and (suspected) exposure to COVID-19; Z88.6 Allergy status to analgesic agent; Z79.51 Long term (current) use of inhaled steroids; Z79.1 Long term (current) use of non-steroidal anti-inflammatories (NSAID); Z79.899 Other long term (current) drug therapy
CPT/HCPCS: 0241U; 36415; 70450; 71045; 71275; 80048; 80076; 81001; 81003; 82272; 82550; 82728; 82803; 83605; 83615; 83735; 83880; 84100; 84145; 84484; 85025; 85027; 85379; 85610; 85730; 86140; 86769; 87040; 87086; 87449; 87633; 87635; 87899; 93005; 96361; 96365; 96367; 96375; 99285; J0456; J0696; J1100; J1650; Q9967

== ENCOUNTER → 2020-09-18 10:13 | Outpatient (BNVA) | payer MEDICAID, SELFPAY | PROVIDERS: PCP Registered Nurse; Visit Provider Physician Assistant ==

== ENCOUNTER → 2020-11-12 11:47 | Outpatient (BNVA) | payer MEDICAID, SELFPAY | PROVIDERS: PCP Registered Nurse; Visit Provider Physician Assistant ==

== ENCOUNTER 2020-11-14 11:08 | Outpatient (REF) | payer MEDICAID, SELFPAY ==
--- NOTE | ~2020-11-14 | XR_ITS ---
EXAMINATION: RIGHT HAND 3 VIEWS CLINICAL INFORMATION: Right hand pain. COMPARISON: None. TECHNIQUE: PA, lateral, oblique views of the right hand were obtained. FINDINGS: There are no fractures or dislocations. There is no significant soft tissue swelling. XR/XR hand RT min 3V IMPRESSION: Unremarkable right hand radiographs.
[2020-11-14 12:31] LABS: Valproate 28.6 mcg/mL (50.0-100.0)
[2020-11-14 13:16] LABS: Carbamazepine Tegretol 3.3 mcg/mL (5.0-12.0)
== END 2020-11-14 11:09 | disposition home or self-care (01) ==
LOC: HO.LAB 11:08
PROVIDERS: Absent Provider Psychiatry & Neurology Neurology; PCP Registered Nurse; Visit Provider Registered Nurse
DX: M79.641 Pain in right hand (principal); R22.31 Localized swelling, mass and lump, right upper limb
CPT/HCPCS: 36415; 73130; 80156; 80164

== ENCOUNTER → 2020-12-18 13:19 | Day surgery (SDC) | payer MEDICAID, SELFPAY ==
--- NOTE | 2020-12-17 09:10 | P.CONAN_ITS ---
Documented by User: Mone Arechiganey 12/17/20 09:12 HPI - Anesthesia Eval Consult details Narrative: 55yo F for Upper Endoscopy and Colonoscopy Rescheduled form 08/2020 - admit with acute resp fail/covid PMFSH Active Problems Active Problems: All Active Problems (Updated 11/12/20 @ 12:36 by Naina Sánchez PA-C) Post-COVID syndrome (Acute) HTN (hypertension) (Acute) Migraine (Acute) Acid reflux (Acute) Chronic constipation (Acute) Seizure disorder (Acute) Past Medical History Medical History Acid reflux Arthritis Atypical pneumonia Chronic constipation HTN (hypertension) Kidney stones Migraine Seizure disorder Syncope Family History Family History Mother Diabetes Sister Diabetes Hypertension High cholesterol Depressed Surgical History Surgical History Hx of cystoscopy Social History Social History Household Members: Significant Other Household Members Other:: CD REACTOR 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- is her boyfriend-fort 28 years Alcohol intake: never Patient Tobacco Use Status: Current everyday Tobacco user Cigarettes Per Day: 3 Use of substances other than those prescribed or required for medical reasons: No Are you DNR?: No Advance Directives: No Advance Directives Information Provided: Yes service: No Current occupational status: disabled Meds Allergies Allergy/AdvReac Type Severity Reaction Status Date / Time ibuprofen [From MOTRIN] Allergy Unknown DIARRHEA/VOMIT, Verified 12/18/20 13:29 nausea and vomiting Home Medications Medication Instructions Recorded Confirmed Last Taken Type atorvastatin 20 mg tablet 20 mg PO DAILY 07/23/20 12/12/20 Unknown History gabapentin 300 mg capsule 300 mg PO TID 07/23/20 12/12/20 12/18/20 07:00 History meloxicam 7.5 mg tablet 7.5 mg PO DAILY 07/23/20 12/12/20 Unknown History omeprazole 20 mg capsule,delayed 20 mg PO DAILY 07/23/20 12/12/20 Unknown History release acetaminophen-codeine 1 tab PO Q12H PRN 09/02/20 12/12/20 Unknown History amitriptyline 100 mg PO DAILY 09/02/20 12/12/20 Unknown History carbamazepine 200 mg PO Q12H 09/02/20 12/12/20 12/18/20 07:00 History cholecalciferol (vitamin D3) 1,250 mcg PO QWEEK 09/02/20 12/12/20 Unknown History clonazepam 1 mg PO BID PRN 09/02/20 12/12/20 Unknown History clonidine HCl 0.1 mg PO TID 09/02/20 12/12/20 12/18/20 07:00 History divalproex 500 mg PO DAILY 09/02/20 12/12/20 12/18/20 07:00 History docusate sodium 100 mg PO BID PRN 09/02/20 12/12/20 Unknown History famotidine 20 mg PO BID 09/02/20 12/12/20 Unknown History fluticasone propionate 1 puff INHALATION BID 09/02/20 12/12/20 12/18/20 07:00 History levothyroxine [Synthroid] 25 mcg PO DAILY 09/02/20 12/12/20 12/18/20 07:00 History melatonin 3 - 6 mg PO BEDTIME PRN 09/02/20 12/12/20 Unknown History quetiapine [Seroquel] 100 mg PO BID 09/02/20 12/12/20 Unknown History sertraline [Zoloft] 50 mg PO DAILY 09/02/20 12/12/20 12/18/20 07:00 History topiramate 100 mg PO BID 09/02/20 12/12/20 12/18/20 07:00 History Exam Exam Date and Time: December 17, 2020 0910 Narrative Narrative: EKG 08/2020 Vent. Rate : 114 BPM Atrial Rate : 114 BPM P-R Int : 138 ms QRS Dur : 068 ms QT Int : 324 ms P-R-T Axes : 042 035 053 degrees QTc Int : 446 ms Sinus tachycardia Otherwise normal ECG When compared with ECG of 18-SEP-2018 21:37, No significant change was found Assessment and Plan Assessment Anesthesia Assessment: Chart Reviewed Documented by User: Milton Melchor MD 12/18/20 14:06 [facility] Past Medical History Medical History Acid reflux Arthritis Atypical pneumonia Chronic constipation HTN (hypertension) Kidney stones Migraine Seizure disorder Syncope Family History Family History Mother Diabetes Sister Diabetes Hypertension High cholesterol Depressed Surgical History Surgical History Hx of cystoscopy Social History Social History Household Members: Significant Other Household Members Other:: CD REACTOR OPERATOR- is her boyfriend-fort 28 years Alcohol intake: never Patient Tobacco Use Status: Current everyday Tobacco user Cigarettes Per Day: 3 Use of substances other than those prescribed or required for medical reasons: No Are you DNR?: No Advance Directives: No Advance Directives Information Provided: Yes service: No Current occupational status: disabled Meds Allergies Allergy/AdvReac Type Severity Reaction Status Date / Time ibuprofen [From MOTRIN] Allergy Unknown DIARRHEA/VOMIT, Verified 12/18/20 13:29 nausea and vomiting Home Medications Medication Instructions Recorded Confirmed Last Taken Type atorvastatin 20 mg tablet 20 mg PO DAILY 07/23/20 12/12/20 Unknown History gabapentin 300 mg capsule 300 mg PO TID 07/23/20 12/12/20 12/18/20 07:00 History meloxicam 7.5 mg tablet 7.5 mg PO DAILY 07/23/20 12/12/20 Unknown History omeprazole 20 mg capsule,delayed 20 mg PO DAILY 07/23/20 12/12/20 Unknown Hi story release acetaminophen-codeine 1 tab PO Q12H PRN 09/02/20 12/12/20 Unknown History amitriptyline 100 mg PO DAILY 09/02/20 12/12/20 Unknown History carbamazepine 200 mg PO Q12H 09/02/20 12/12/20 12/18/20 07:00 History cholecalciferol (vitamin D3) 1,250 mcg PO QWEEK 09/02/20 12/12/20 Unknown History clonazepam 1 mg PO BID PRN 09/02/20 12/12/20 Unknown History clonidine HCl 0.1 mg PO TID 09/02/20 12/12/20 12/18/20 07:00 History divalproex 500 mg PO DAILY 09/02/20 12/12/20 12/18/20 07:00 History docusate sodium 100 mg PO BID PRN 09/02/20 12/12/20 Unknown History famotidine 20 mg PO BID 09/02/20 12/12/20 Unknown History fluticasone propionate 1 puff INHALATION BID 09/02/20 12/12/20 12/18/20 07:00 History levothyroxine [Synthroid] 25 mcg PO DAILY 09/02/20 12/12/20 12/18/20 07:00 History melatonin 3 - 6 mg PO BEDTIME PRN 09/02/20 12/12/20 Unknown History quetiapine [Seroquel] 100 mg PO BID 09/02/20 12/12/20 Unknown History sertraline [Zoloft] 50 mg PO DAILY 09/02/20 12/12/20 12/18/20 07:00 History topiramate 100 mg PO BID 09/02/20 12/12/20 12/18/20 07:00 History Assessment and Plan Anesthetic Plan Anesthetic Plan: Other (Contd dyspnea and low sats post-COVID. Postpone elective procedures till feels fully recovered)
[2020-12-18 13:35] VITALS: BP 141/84; PULSE 91; RESP 16; TEMP 36.4; O2SAT 96; BMI 26.6
--- NOTE | 2020-12-18 13:43 | MHC.SHP ---
Pre-Procedural Eval Section B Chief Complaint: Acid reflux, Constipation Relevant Family History (Specify if Yes): No Relevant Social History: Tobacco Use Present Medications: see Short Stay Collaborative assessment Medical History: Significant History (Acid reflux Chronic constipation HTN (hypertension) Kidney stones Migraine Seizure disorder) History of Previous Operations: Relevant previous surgery/procedure and date(s) (cystoscopy) Allergies: Allergies Allergy/AdvReac Type Severity Reaction Status Date / Time ibuprofen [From MOTRIN] Allergy Unknown DIARRHEA/VOMIT, Verified 12/18/20 13:29 nausea and vomiting Review of Systems Sugical H&P ROS: Negative: Constitution, Cardiovascular, Respiratory, Neurological, Psychiatric, Hem-Onc, Allergic/Immunologic, Gastrointestinal, Genitourinary, Musculoskeletal, Integumentary, Endocrine and Eyes/Ears/Nose/Throat Exam Surgical H&P Exam: Normal: HEENT, Normal: Heart, Normal: Lungs, Normal: Extremities, Normal: Abdomen, Normal: Skin and Normal: Neurological Plan Diagnosis/Plan: Unchanged I have reviewed the history and physical and performed a pertinent physical examination on my patient. No changes have occurred unless specified.
[2020-12-18] MEDS: Lactated Ringers 1,000 ML 100 ML IVCONT (13:50)
--- NOTE | 2020-12-18 14:17 | PC.NURSE ---
anesthesia at bedside evaluating pt with gi md. baseline respiratry status not back to normal since her covid incidence in feb. procedure cancelled.
== END ==
PROVIDERS: PCP Registered Nurse; Visit Provider Internal Medicine Gastroenterology
DX: K59.09 Other constipation (principal); Z53.8 Procedure and treatment not carried out for other reasons; K21.9 Gastro-esophageal reflux disease without esophagitis; Z86.16 Personal history of COVID-19; G40.909 Epilepsy, unspecified, not intractable, without status epilepticus

== ENCOUNTER 2021-12-17 13:34 | Outpatient (REF) | payer MEDICAID, SELFPAY ==
[2021-12-17 14:29] LABS: Blood Urea Nitrogen 9 mg/dL (9-16); Estimated Glomerular Filt Rate > 60
== END 2021-12-17 13:35 | disposition home or self-care (01) ==
LOC: HO.LAB 13:34
PROVIDERS: Visit Provider Psychiatry & Neurology Neurology
DX: R56.9 Unspecified convulsions (principal)
CPT/HCPCS: 36415; 82565; 84520

== ENCOUNTER 2022-01-07 14:12 | Outpatient (REF) | payer MEDICAID, SELFPAY ==
--- NOTE | ~2022-01-07 | MR_ITS ---
EXAMINATION: MR BRAIN WITHOUT AND WITH CONTRAST CLINICAL INFORMATION: Seizure. COMPARISON: Head CT dated 09/02/2020. TECHNIQUE: Multiplanar, multisequence imaging of the brain was acquired on a 3 Stephanie magnet before and after the intravenous administration of 7.5 mL of Gadavist. Limited examination with motion artifacts. FINDINGS: No diffusion abnormalities are identified to suggest an acute infarct. The ventricles are normal in size. No mass effect or midline shift is seen. No brain parenchymal signal abnormality is noted. No extra-axial fluid collections are seen. The brainstem and cerebellum are normal. There is no abnormal parenchymal or leptomeningeal enhancement. No focal cortical dysplasia or migrational abnormality is seen. The hippocampi are normal in appearance. The gradient refocused acquisition demonstrates no pathologic magnetic susceptibility artifact to indicate underlying acute or chronic blood products. The craniovertebral junction, marrow signal, and midline structures are normal. The orbits and pituitary axis appear normal. The major intracranial flow voids at the level of the [place] of [place] are preserved. The dural venous sinus flow voids are maintained. There is a significant rightward nasal septal deviation and a perforated defect in the anterior cartilaginous nasal septum. Gvas-ak-qifhuizm ethmoid sinus mucosal thickening noted, more so posteriorly. The mastoid air cells are well aerated. MR/MR head/brain wo/w con IMPRESSION: Normal limited MRI of the brain with motion artifacts. No epileptogenic focus identified.
== END 2022-01-07 14:13 | disposition home or self-care (01) ==
LOC: HO.MRI 14:12
PROVIDERS: Visit Provider Psychiatry & Neurology Neurology
DX: R56.9 Unspecified convulsions (principal)
CPT/HCPCS: 70553; A9585

== ENCOUNTER 2022-01-21 10:27 | Emergency (ER) | payer MEDICAID, SELFPAY ==
--- NOTE | 2022-01-21 10:42 | ED_ITS ---
HPI - CPR General Chief Complaint: Cardiac Arrest/CPR Stated Complaint: CARDIAAC ARREST Time Seen by Provider: 01/21/22 10:42 Source: family and EMS Mode of arrival: EMS Limitations: other (ongoing CPR) History of Present Illness HPI narrative: 56 yo female with hx of HTN, seizures, migraines, chronic pain was last seen before bed around 10pm. Her partner notes she took a pill from her son last night who is an addict it had E55 on it. Partner noted patient took her medications as well wsa very sleepy standing up with her eyes rolling back. Partner states he already gave the pill to the police and told them it was her son. The patient has been having chronic knee pain. Her partner heard her choking and making noise around midnight so he moved her so she could breathe better. When they woke up this morning patient was unresponsive. EMS was called around 944 - patient was unresponsive, jaw slightly rigid, no pulse, asystole, no breathing. They note house was unkempt. Partner states he noted white mate elaine on the pillow and saw some white stuff on her mouth this morning he questions overdose. EMS has patient's pills with her also separate are Rx for tramadol and T#3. Partner notes patient will be given drugs by her son at times and she takes them. MD complaint: found unresponsive Onset (ago): unknown (last felt moving around midnight) Timing confirmed by: spouse Place: home Bystander CPR performed: No AED applied by bystander/roustabout crew: Yes Shock advised: No Initial findings in the field: unresponsive, no respirations, no pulse and other rhythm (asystole) ROSC in the field: No Associated injuries: No Associated symptoms: other (please see above) Known history of: other (seizure, taking pills from her son at times due to issues with leg pain) Treatments prior to arrival: intubation (7.0), BMV, chest compressions, epinephrine mgs # (5) and glucose (46 on arrival given D10) Related Data Home Medications Medication Instructions Recorded Confirmed atorvastatin 20 mg tablet 20 mg PO DAILY 07/23/20 12/12/20 gabapentin 300 mg capsule 300 mg PO TID 07/23/20 12/12/20 meloxicam 7.5 mg tablet 7.5 mg PO DAILY 07/23/20 12/12/20 omeprazole 20 mg capsule,delayed 20 mg PO DAILY 07/23/20 12/12/20 release acetaminophen 300 mg-codeine 30 mg 1 tab PO Q12H PRN Pain 09/02/20 12/12/20 tablet amitriptyline 100 mg tablet 100 mg PO DAILY 09/02/20 12/12/20 carbamazepine 100 mg 200 mg PO Q12H 09/02/20 12/12/20 tablet,extended release,12 hr cholecalciferol (vitamin D3) 1,250 1,250 mcg PO QWEEK 09/02/20 12/12/20 mcg (50,000 unit) capsule clonazepam 1 mg tablet 1 mg PO BID PRN Anxiety 09/02/20 12/12/20 clonidine HCl 0.1 mg tablet 0.1 mg PO TID 09/02/20 12/12/20 divalproex 500 mg tablet,extended 500 mg PO DAILY 09/02/20 12/12/20 release 24 hr docusate sodium 100 mg capsule 100 mg PO BID PRN constipation 09/02/20 12/12/20 famotidine 20 mg tablet 20 mg PO BID 09/02/20 12/12/20 fluticasone propionate 220 1 puff inhalation BID 09/02/20 12/12/20 mcg/actuation HFA aerosol inhaler levothyroxine 25 mcg tablet 25 mcg PO DAILY 09/02/20 12/12/20 (Synthroid) melatonin 3 mg tablet 3 - 6 mg PO BEDTIME PRN Insomnia 09/02/20 12/12/20 quetiapine 100 mg tablet (Seroquel) 100 mg PO BID 09/02/20 12/12/20 sertraline 50 mg tablet (Zoloft) 50 mg PO DAILY 09/02/20 12/12/20 topiramate 100 mg tablet 100 mg PO BID 09/02/20 12/12/20 Previous Rx's Medication Instructions Recorded dexamethasone 4 mg tablet 8 mg PO DAILY #12 tabs 09/06/20 (Decadron) bisacodyl 10 mg rectal suppository 10 mg RI DAILY PRN constipation 11/12/20 (Dulcolax (bisacodyl)) #20 ea bisacodyl 5 mg tablet,delayed 10 mg PO ONCE colonoscopy prep 1 11/12/20 release (Dulcolax (bisacodyl)) day #2 tabs lactulose 10 gram/15 mL oral 10 g (15 mL) PO DAILY PRN 11/12/20 solution constipation 30 days #237 mL polyethylene glycol 3350 17 238 g PO ONCE 1 day #238 grams 11/12/20 gram/dose oral powder (Miralax) Allergies Allergy/AdvReac Type Severity Reaction Status Date / Time ibuprofen [From MOTRIN] Allergy Unknown DIARRHEA/VOMIT, Verified 12/18/20 13:29 nausea and vomiting Review of Systems Review of Systems: ROS unable to be obtained due to altered mental status [facility] Past Medical History Attestation statement: The following information was validated with the patient. 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 Atraumatic Neck: Normal inspection. Neck supple. CVS: Absent heart sounds, ongoing compressions Respiratory: equal breath sounds with bagging heard Abdomen: Soft and no trauma Skin: Skin cold with dependent lividit on flank and thigh Extremities: No lower extremity edema. Neuro: unresponsive, no response to painful stimuli, fixed and dilated pupils Course Course Course Narrative: CPR for 45 minutes with asystole signs of lividity with unknown downtime at this time absent heart sounds, fixed and dilated pupils, cardiac standstill on US time of 1033am accepted to [facility] by Deneen Ferrari Case # [id number] MDM - Cardiac Arrest/CPR MDM Narrative Medical decision making narrative: 56 yo female with hx of HTN, seizures, migraines, chronic pain here in cardiac arrest with suspected prolonged downtime - showing signs of lividity asystole with EMS for 45 minutes concerning story overnight. At this time resuscitative efforts held given prolonged CPR without any ROSC or rhthym change. Call to ME. Partner notified. Procedures Procedure Narrative Procedure Narrative: bedside cardiac US - parasternal subxiphoid apical - cardiac standstill 1033am Critical Care Time Critical Care Time Critical Care Time: Yes Total Critical Care Time: 35 Attestation: call to ME, family discussion, review of records I attest to this time spent taking care of the patient Discharge Plan Discharge Clinical Impression: Cardiac arrest Patient Disposition: Prescriptions: No Action clonidine HCl 0.1 mg tablet 0.1 mg PO TID carbamazepine 100 mg tablet extended release 12 hr 200 mg PO Q12H clonazepam 1 mg tablet 1 mg PO BID PRN (Reason: Anxiety) melatonin 3 mg tablet 3 - 6 mg PO BEDTIME PRN (Reason: Insomnia) acetaminophen-codeine 300-30 mg tablet 1 tab PO Q12H PRN (Reason: Pain) famotidine 20 mg tablet 20 mg PO BID divalproex 500 mg tablet extended release 24 hr 500 mg PO DAILY docusate sodium 100 mg capsule 100 mg PO BID PRN (Reason: constipation) topiramate 100 mg tablet 100 mg PO BID sertraline [Zoloft] 50 mg tablet 50 mg PO DAILY amitriptyline 100 mg tablet 100 mg PO DAILY cholecalciferol (vitamin D3) 1,250 mcg (50,000 unit) capsule 1,250 mcg PO QWEEK quetiapine [Seroquel] 100 mg Tablet 100 mg PO BID levothyroxine [Synthroid] 25 mcg Tablet 25 mcg PO DAILY fluticasone propionate 220 mcg/actuation Hfa Aerosol Inhaler 1 puff INHALATION BID dexamethasone [Decadron] 4 mg tablet 8 mg PO DAILY Qty: 12 0RF meloxicam 7.5 mg tablet 7.5 mg PO DAILY gabapentin 300 mg capsule 300 mg PO TID atorvastatin 20 mg tablet 20 mg PO DAILY omeprazole 20 mg capsule,delayed release(DR/EC) 20 mg PO DAILY lactulose 10 gram/15 mL solution 10 g PO DAILY PRN (Reason: constipation) 30 Days Qty: 237 0RF bisacodyl [Dulcolax (bisacodyl)] 5 mg tablet,delayed release (DR/EC) 10 mg PO ONCE 1 Days Qty: 2 0RF Rx Instructions: Take 2 tablets by mouth at 12:00pm the day before your procedure. polyethylene glycol 3350 [Miralax] 17 gram/dose powder 238 g PO ONCE 1 Days Qty: 238 0RF Rx Instructions: Take as directed by mouth the day before your procedure. bisacodyl [Dulcolax (bisacodyl)] 10 mg suppository 10 mg RI DAILY PRN (Reason: constipation) Qty: 20 0RF
--- NOTE | 2022-01-21 11:06 | PC.NURSE ---
@ 10:59AM CALL PLACED TO WHIZZER OPERATOR OFFICE @ DR SAUCEDA REQUEST PT DEMOGRAPHICS GIVE, THEN DR SUACEDA TAKES OVER CALL RIGHT AWAY
--- NOTE | 2022-01-21 11:19 | PC.NURSE ---
@1110 called placed to this person primary care office Dr. Marissa Geiger Answered and took patients information
--- NOTE | 2022-01-21 11:41 | PC.NURSE ---
PER DR SAUCEDA BRIDGE CONSTRUCTION INSPECTOR DAYSI RUSS ACCEPTS THIS CASE AND GIVES A CASE NUMBER OF [id number] TIME OF 1033AM
[2022-01-21 12:15] LABS: Glucose, Whole Blood 38 mg/dL (60-115)
[2022-01-21 12:19] VITALS: BMI 32.8
== END 2022-01-21 12:53 | disposition expired ==
PROVIDERS: Emergency Provider Emergency Medicine
DX: I46.9 Cardiac arrest, cause unspecified (principal); I10 Essential (primary) hypertension; G40.909 Epilepsy, unspecified, not intractable, without status epilepticus; K21.9 Gastro-esophageal reflux disease without esophagitis; F17.200 Nicotine dependence, unspecified, uncomplicated
CPT/HCPCS: 82947; 99282; 99284; J0171